=== PATIENT | male | born 1950 | race African-American/Black ===

== ENCOUNTER 2023-03-25 11:52 | Inpatient (IN) | payer MEDICARE, BC, SELFPAY ==
--- NOTE | ~2023-03-25 | CT_ITS ---
EXAMINATION: CT CHEST, ABDOMEN AND PELVIS WITHOUT CONTRAST. CLINICAL INFORMATION: Hemoptysis, chest pain, dyspnea, weight loss. Right flank pain. COMPARISON: No pertinent prior studies are available for comparison. TECHNIQUE: Multidetector volumetric imaging was performed from the thoracic inlet through the pubic symphysis without IV contrast. Sagittal and coronal reformatted images were obtained on the technologist's workstation. This CT examination was performed using dose optimization techniques as appropriate, variously including the following: *Automated exposure control *Adjustment of mA and/or kV according to patient size (this includes techniques or standardized protocols for targeted exams where dose is matched to indication/reason for exam; i.e. extremities or head) *Use of iterative reconstruction technique DLP: 239 and 681 mGy-cm FINDINGS: CHEST: Lung: Combination of consolidative, patchy and groundglass opacities occupying the majority of the right upper lobe with some degree of associated volume loss. The right upper mainstem bronchus as well as other central airways are patent. Platelike opacities in the posterior aspect of the right lower lobe, favored to represent subsegmental atelectases. The left lung is clear. Evaluation of pulmonary nodules/masses in the right upper lobe is essentially nondiagnostic due to overlying airspace opacities. There are scattered sub-4 mm mixed calcified and noncalcified pulmonary nodules elsewhere bilaterally, for instance a 4 mm solid pulmonary nodule in the right middle lobe anterior to the fissure (7:255), a micronodule in the right middle lobe (7:215) and a solid 2 mm nodule in the left lower lobe posterior to the fissure (7:204). Mediastinum: Heart is within the upper limits of normal. Small amount of pericardial fluid. Coronary artery calcifications are noted. Numerous subcentimeter short axis mediastinal lymph nodes are seen. Evaluation of hilar lymph nodes is limited in the absence of IV contrast. There is a 1.5 cm right thyroid nodule (5:4). Pericardium/Pleura: As above, small pericardial effusion. No pleural effusion or pneumothorax. Chest Wall/Axilla: Symmetric gynecomastia. No lymphadenopathy by size criteria. Asymmetric elevation of the right hemidiaphragm. ABDOMEN/PELVIS: The lack of intravenous contrast limits evaluation of the solid visceral organs including the liver, spleen, pancreas, and kidneys. Liver, Gallbladder, Biliary Tree: Limited noncontrast evaluation of the liver, unremarkable. Hyperdense debris in the gallbladder to represent bile duct, calculi or sludge. No associated inflammatory changes to suspect acute cholecystitis. No biliary ductal dilatation. Pancreas: Limited noncontrast examination. No significant peripancreatic fat stranding or free fluid. Spleen: Unremarkable. Adrenal Glands: Unremarkable. Kidneys and Ureters: Limited noncontrast examination. Mild asymmetric prominence of the right renal pelvis and right ureter without discrete obstructive renal calculi. Trace amount of perinephric free fluid along the inferior right kidney (12:411). Bladder: Unremarkable. Gastrointestinal Tract: Small hiatal hernia. Duodenal diverticulum. The stomach and the small bowel are nondilated. Normal appendix. Colonic diverticulosis. No pericolonic inflammatory changes. No bowel obstruction. Abdominal Wall: Small fat-containing inguinal hernias. Lymphovascular Structures: No lymphadenopathy by size criteria. Atherosclerotic disease. Abdominal aorta is normal in caliber. Pelvic Viscera: Enlarged prostate protruding into the bladder base transverse diameter measuring 5.6 cm. Osseous Structures: Degenerative changes of the spine. Grade 1 anterolisthesis of L4 on L5. CT/CT abdomen pelvis wo IV con IMPRESSION: Limited noncontrast examination. 1. Combination of consolidative, patchy and groundglass opacities occupying the majority of the right upper lobe with associated volume loss. This could be related with an atypical pneumonia with some component of atelectasis, however an underlying malignancy is not excluded. Recommend a short-term follow-up chest CT with IV contrast. 2. Scattered sub-4 mm mixed calcified and noncalcified pulmonary nodules that could be follow-up with the above recommended chest CT. 3. Mild asymmetric prominence of the right renal pelvis and right ureter without discrete obstructive renal calculi. This could be seen in the setting of a recently passed stone. Mild asymmetric right-sided perinephric fat stranding, nonspecific could be physiologic or reactive in the setting of a recently passed stone. However, clinical correlation should be obtained for acute pyelonephritis which is suboptimally assessed in the absence of IV contrast. 4. Colonic diverticulosis but no evidence of acute diverticulitis. 5. Small hiatal hernia. 6. Enlarged prostate. 7. Incidentally noted 1.5 cm right thyroid nodule. Based on the recommendations of the ACR Incidental Thyroid Findings Committee (JACR 2015 Feb; 12(2):143-50), further evaluation by thyroid ultrasound is recommended for solitary incidental thyroid nodules greater than or equal to 1.5 cm in largest axial dimension in patients age 35 years and older who do not have limited life expectancy or significant morbidities, unless clinically warranted.
--- NOTE | ~2023-03-25 | XR_ITS ---
EXAMINATION: XR CHEST CLINICAL INFORMATION: Weakness. COMPARISON: None available. TECHNIQUE: Frontal view of the chest was obtained. FINDINGS: The left lung is expanded and clear. The right lung is hypoexpanded with patchy increased density right lung apex question lesion versus underlying infiltrate. Heart size and perivascular is normal. There is moderate spondylosis dorsal spine. XR/XR chest 1V IMPRESSION: 1. Hypoexpanded right lung with increased density right lung apex question lesion versus underlying infiltrate. Recommend CT chest. 2. The left lung is clear.
[2023-03-25 12:02] VITALS: PULSE 94; RESP 20; TEMP 36.4; O2SAT 94; BMI 28.5
--- NOTE | 2023-03-25 12:02 | ECG_ITS ---
Test Reason : DIZZINESS Blood Pressure : / mmHG Vent. Rate : 100 BPM Atrial Rate : 000 BPM P-R Int : 000 ms QRS Dur : 112 ms QT Int : 350 ms P-R-T Axes : 000 -39 113 degrees QTc Int : 451 ms Atrial fibrillation Left axis deviation T inversion lateral leads Abnormal ECG No previous ECGs available Referred By: Bethany Hendrix Electronically Signed By:JAVED VIEYRA
--- NOTE | 2023-03-25 12:02 | ED.GENADULT ---
HPI - General Adult General Chief complaint: Abdominal Pain Stated complaint: Kidney Pain Radiating to Chest Time Seen by Provider: 03/25/23 15:17 Source: patient and family (Cousin) Mode of arrival: ambulatory Limitations: no limitations History of Present Illness HPI narrative: 72-year-old male who presents emergency department for evaluation of right-sided flank pain, cough, shortness of breath and weight loss. The patient states that 2 days prior he woke up and was having right flank pain. He describes the pain is a twisting like sensation that is been intermittent became constant over the past 24 hours. The patient does have difficulty with his memory and has memory loss. He states that his pain was severe this morning he passed out but cannot recount details a passing out. He did discuss his symptoms over the phone with his cousin who then brought him to the emergency department for evaluation. Patient states that he has noted dark colored urine. He denied fever, chills, rhinorrhea, sore throat. He states that he has a cough which is productive of clear splint but occasionally the sputum is bloody. States that the cough started in January of 2023. He denied chest pain, shortness of breath. He states he does have dyspnea on exertion. He denied nausea or vomiting. He has had loose runny stools x2 days. Denied frequency or dysuria but has noted dark colored urine. He states he has had an 8 lb weight loss. States that he is having increased fatigue above his baseline. The patient's primary care is Dr. 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 Atrial fibrillation, on Eliquis, Type 2 diabetes, Congestive heart failure, depressive disorder, GERD, gout, history of kidney disease with protein urea, history of angioplasty, hypertension, ischemic heart disease, stage 3 kidney disease. Past surgical history: Tonsillectomy. Social history: The patient denies tobacco, alcohol and drug use. Social History Social History Alcohol intake: never Smoked in Last 30 Days: No Physical Exam ED Vital Signs: Vital Signs - 24 hr 05/24/23 12:02 03/25/23 15:34 03/25/23 16:00 Temperature 97.5 F 98.1 F 98.1 F Pulse Rate 94 74 94 Respiratory Rate 20 20 18 Blood Pressure 109/68 109/67 Pulse Oximetry 94 94 95 Oxygen Delivery Method Room Air Room Air Room Air BMI result Body Mass Index 28.5 Const General: cooperative and no acute distress Orientation/consciousness: oriented to person and oriented to place Limitations: no limitations HENMT Head: Yes normal to inspection, Yes normocephalic and Yes atraumatic Ears: external ears normal General nose exam: Normal external nose present Face and sinus: Yes normal facial exam Mouth: Normal oral and palatal mucosa present Throat: Yes posterior oropharynx normal Eyes General: appearance normal, both eyes and all related structures Pupils: Equal, round and reactive pupils present Neck Neck: Yes normal visual inspection, Yes no lymphadenopathy, Yes trachea midline and Yes supple Chest Chest palpation & inspection: normal inspection of the chest and normal palpation of entire chest wall Resp Effort & Inspection: normal respiratory effort and able to speak in complete sentences Auscultation: clear to auscultation bilaterally Cardio Rate: regular rate Rhythm: regular rhythm Heart sounds: S1 normal heart sound present, S2 normal heart sound present and no murmurs GI Inspection: Yes normal to inspection Palpation (GI): Soft to palpation, nontender and no guarding Auscultation: normal bowel sounds General: Yes no CVA tenderness Back/Spine/Pelvis Back: no CVA tenderness Skin General skin exam: no rashes or lesions noted Neuro General: oriented to person and oriented to place Cranial nerves: Yes CN's II-XII intact bilaterally and Yes Equal, round and reactive pupils present Cognition (Neuro): normal cognition Motor exam (neuro): 5/5 motor strength present throughout Extrem General: Yes normal to inspection Psych Appearance: grossly normal Speech and movement: Normal speech and movement present Affect: normal affect Attitude: cooperative Course Course Course Narrative: RME: 72yo M w/PMHx memory issues, HTN, HLD, A.fib on Eliquis c/o generalized fatigue/weakness, R flank pain, decreased PO intake, & mild SOB x few days. denies CP, hematuria, dysuria ambulating w/steady gait, abdomen soft nontender, no CVAT EKG, labs, UA, CXR ordered Full HPI, ROS and PE to be performed by primary ED provider. Medications Administered Generic Name Dose Route Start Last Admin Trade Name Freq PRN Reason Stop Dose Admin Sodium Chloride 1,000 mls @ 999 mls/hr 03/25/23 16:06 03/25/23 16:12 Ns IV 03/25/23 17:06 999 mls/hr .Q1H1M STA Administration Medical Decision Making Medical Decision Making MDM Narrative: 72-year-old male with a history of congestive heart failure, atrial fibrillation-on Eliquis type 2 diabetes, depression, GERD, gout, ischemic heart disease, hypertension, history of angioplasty, stage 3 chronic kidney disease who presents emergency department for evaluation of right flank pain, change in the color of his urine (darker than usual) x2 days, cough which is occasionally productive of blood times 1 month with unintentional 8 lb weight loss and fatigue, diarrhea x2 days. Patient does have difficulty with his memory. Patient's physical examination was unremarkable. The following tests were ordered: CBC, BMP, liver panel, lipase, troponin, PT/INR, magnesium, COVID-19, urinalysis, chest x-ray one view, CT scan chest without IV contrast, CT scan abdomen pelvis without IV contrast. Patient was also ordered to get normal saline IV x1 L. 1610: My interpretation patient's laboratory evaluation is as follows: WBC elevated 11,800, no anemia. INR elevated 1.9. BUN and creatinine elevated 78 in 2.74-this is elevated compared to 12/12/2020 BUN 27 and creatinine 2.1 and 17 and 1.4 on 05/26/2022. Total bilirubin was elevated 2.1, AST and ALT were elevated 78 and 50. Lipase was normal. Urinalysis revealed 1+ protein, trace ketones, negative nitrates and negative leukocyte esterase. Microscopic is pending Radiologist noted that the patient's right lung was hypoexpanded with increased density right lung apex question lesion versus underlying infiltrate. He recommended CT scan of the chest. My interpretation of the patient's chest x-ray concurs with decreased expansion of the right lung and possible mass in the right upper lobe/apex. 1633: At the end of my shift, the patient's CT scans are pending. The patient's care was turned over to my colleague, Dr. Penny. Differential Diagnosis Differential diagnosis includes but is not limited to kidney stone, pyelonephritis, pancreatitis, musculoskeletal pain, pneumonia, malignancy, tuberculosis Admission/Observation Consideration of admission/observation: Escalation of care including admission/observation considered Lab Data [facility] Lab Attestation statement: I reviewed the patient's lab results. See MDM 03/25/23 12:47 03/25/23 12:47 Labs: Lab Results 03/25/23 03/25/23 03/25/23 Range/Units 12:47 12:47 12:47 WBC 11.8 H (4.8-10.8) X10*3/uL RBC 5.49 (4.60-5.80) X10*6/uL Hgb 15.0 (14.0-18.0) g/dl Hct 45.0 (42.0-52.0) % MCV 82.0 (80.0-98.0) fL MCH 27.3 (27.0-33.0) pg MCHC 33.3 (31.0-36.0) g/dl RDW 14.9 (11.0-16.0) % Plt Count 190 (160-400) X10*3/uL MPV 10.1 (9.4-12.4) fL Immature Gran % (Auto) 0.5 H (0.0-0.4) % Neut % (Auto) 85.1 H (45-73) % Lymph % (Auto) 6.8 L (20-40) % [place] % (Auto) 7.2 (2-11) % Eos % (Auto) 0.1 (0-4) % Baso % (Auto) 0.3 (0-2) % Lymph # (Auto) 0.8 L (1.2-4.9) X10*3/uL [place] # (Auto) 0.9 (0.1-1.2) X10*3/uL Eos # (Auto) 0.0 (0.0-0.4) X10*3/uL Baso # (Auto) 0.0 (0.0-0.2) X10*3/uL Abs Immat Gran (auto) 0.06 H (0.00-0.03) X10*3/uL Absolute Neuts (auto) 10.1 H (2.0-8.3) x10*3/uL Absolute Nucleated RBC 0.000 (0.0-0.012) X10*3/uL Nucleated RBC % (auto) 0.0 (0.0-0.2) /100WBC PT (10.0-13.1) SEC INR (0.9-1.1) Sodium 139 (135-145) mmol/L Potassium 3.8 (3.3-5.1) mmol/L Chloride 100 (96-108) mmol/L Carbon Dioxide 23 (22-29) mmol/L Anion Gap 20 (12-20) BUN 78 H (9-16) mg/dL Creatinine 2.74 H (0.5-1.4) mg/dL Estim Creat Clear Calc 27.9 Estimated GFR 23 Random Glucose 109 (60-115) mg/dL Calcium 8.9 (8.4-10.2) mg/dL Magnesium 2.6 (1.6-2.6) mg/dL Total Bilirubin 2.1 H (0.0-1.0) mg/dL Direct Bilirubin 0.9 H (0.0-0.5) mg/dL AST 78 H (5-37) U/L ALT 50 H (0-40) U/L Alkaline Phosphatase 114 (39-117) U/L Troponin I High Sens 10.1 (<3.5-35.0) ng/L Total Protein 6.5 (6.5-8.0) g/dL Albumin 3.4 L (3.5-5.0) g/dL Lipase 36 (8-78) U/L Urine Color Urine Appearance Urine pH (5.0-9.0) Ur Specific Donald (1.005-1.025) Urine Protein (Neg-Trace) mg/dL Urine Glucose (UA) (Negative) mg/dL Urine Ketones (Negative) mg/dL Urine Blood (Negative) Urine Nitrite (Negative) Ur Leukocyte Esterase (Negative) Urine RBC (0-2) /HPF Urine WBC (0-5) /HPF Ur Squamous Epith Cells (0-2) /HPF Urine Bacteria (None Seen) Hyaline Casts (0-2) /LPF COVID-19 ([facility]) (Negative) COVID-19 Clin Com 03/25/23 03/25/23 03/25/23 Range/Units 12:47 12:47 16:08 WBC (4.8-10.8) X10*3/uL RBC (4.60-5.80) X10*6/uL Hgb (14.0-18.0) g/dl Hct (42.0-52.0) % MCV (80.0-98.0) fL MCH (27.0-33.0) pg MCHC (31.0-36.0) g/dl RDW (11.0-16.0) % Plt Count (160-400) X10*3/uL MPV (9.4-12.4) fL Immature Gran % (Auto) (0.0-0.4) % Neut % (Auto) (45-73) % Lymph % (Auto) (20-40) % [place] % (Auto) (2-11) % Eos % (Auto) (0-4) % Baso % (Auto) (0-2) % Lymph # (Auto) (1.2-4.9) X10*3/uL [place] # (Auto) (0.1-1.2) X10*3/uL Eos # (Auto) (0.0-0.4) X10*3/uL Baso # (Auto) (0.0-0.2) X10*3/uL Abs Immat Gran (auto) (0.00-0.03) X10*3/uL Absolute Neuts (auto) (2.0-8.3) x10*3/uL Absolute Nucleated RBC (0.0-0.012) X10*3/uL Nucleated RBC % (auto) (0.0-0.2) /100WBC PT 22.2 H (10.0-13.1) SEC INR 1.9 H (0.9-1.1) Sodium (135-145) mmol/L Potassium (3.3-5.1) mmol/L Chloride (96-108) mmol/L Carbon Dioxide (22-29) mmol/L Anion Gap (12-20) BUN (9-16) mg/dL Creatinine (0.5-1.4) mg/dL Estim Creat Clear Calc Estimated GFR Random Glucose (60-115) mg/dL Calcium (8.4-10.2) mg/dL Magnesium (1.6-2.6) mg/dL Total Bilirubin (0.0-1.0) mg/dL Direct Bilirubin (0.0-0.5) mg/dL AST (5-37) U/L ALT (0-40) U/L Alkaline Phosphatase (39-117) U/L Troponin I High Sens (<3.5-35.0) ng/L Total Protein (6.5-8.0) g/dL Albumin (3.5-5.0) g/dL Lipase (8-78) U/L Urine Color Dark Yellow Urine Appearance Cloudy Urine pH 5.5 (5.0-9.0) Ur Specific Donald 1.020 (1.005-1.025) Urine Protein 30 (1+) H (Neg-Trace) mg/dL Urine Glucose (UA) Negative (Negative) mg/dL Urine Ketones Trace (Negative) mg/dL Urine Blood Negative (Negative) Urine Nitrite Negative (Negative) Ur Leukocyte Esterase Negative (Negative) Urine RBC 3-5 H (0-2) /HPF Urine WBC 0-5 (0-5) /HPF Ur Squamous Epith Cells 6-10 (0-2) /HPF Urine Bacteria None Seen (None Seen) Hyaline Casts 11-20 (0-2) /LPF COVID-19 ([facility]) Negative (Negative) COVID-19 Clin Com See Note Independent Interpretation I performed an independent interpretation of an: EKG and Plain X-Ray Interpretation: My independent interpretation of the patient's one-view chest x-ray is as follows: Hypoexpansion of the right lung with possible right upper apex mass My independent interpretation patient's 12 EKG done at 15:55 is as follows: Atrial fibrillation with a rate of 91, normal QRS duration and QTC interval, no ST segment elevation, no ST segment depression, occasional PVC, no significant T-wave abnormalities. Radiology Impression Discussion of test interpretation with radiology: I have reviewed the radiologist's reading. Radiologist Impression: XR chest 1V IMPRESSION: 1. Hypoexpanded right lung with increased density right lung apex question lesion versus underlying infiltrate. Recommend CT chest. 2. The left lung is clear. Dictated By:Beau Ruiz MD Independent Historian Clinical information obtained from an independent historian. History obtained from or confirmed by: Other (Cousin) Discharge Plan Discharge Clinical Impression: Acute right flank pain, Hemoptysis, Acute kidney injury superimposed on chronic kidney disease Patient Disposition: Still a Patient
[2023-03-25 12:54] LABS: MANUAL DIFF FLAG NO
[2023-03-25 12:57] LABS: Basophils Percent Auto 0.3 % (0-2); Eosinophils Percent Auto 0.1 % (0-4); Imm Gran Abs Auto 0.06 X10*3/uL (0.00-0.03); Imm Gran Pct Auto 0.5 % (0.0-0.4); Lymphocytes Absolute Auto 0.8 X10*3/uL (1.2-4.9); Lymphocytes Percent Auto 6.8 % (20-40); Mean Corpuscular HGB Conc 33.3 g/dl (31.0-36.0); Mean Corpuscular Hemoglobin 27.3 pg (27.0-33.0); Mean Platelet Volume 10.1 fL (9.4-12.4); Monocytes Absolute Auto 0.9 X10*3/uL (0.1-1.2); Monocytes Percent Auto 7.2 % (2-11); Neutrophils Absolute Auto 10.1 x10*3/uL (2.0-8.3); Neutrophils Percent Auto 85.1 % (45-73); Platelet Count 190 X10*3/uL (160-400); Red Blood Count 5.49 X10*6/uL (4.60-5.80); Red Cell Distribution Width 14.9 % (11.0-16.0); White Blood Count 11.8 X10*3/uL (4.8-10.8)
[2023-03-25 13:03] LABS: INTERNATIONAL NORM RATIO 1.9 (0.9-1.1); Prothrombin Time 22.2 SEC (10.0-13.1)
[2023-03-25 13:22] LABS: Alanine Aminotransferase 50 U/L (0-40); Albumin Level 3.4 g/dL (3.5-5.0); Alkaline Phosphatase 114 U/L (39-117); Anion Gap 20 (12-20); Aspartate Amino Transferase 78 U/L (5-37); Bilirubin Direct 0.9 mg/dL (0.0-0.5); Bilirubin Total 2.1 mg/dL (0.0-1.0); Blood Urea Nitrogen 78 mg/dL (9-16); COVID-19 Test Negative (Negative); Calcium 8.9 mg/dL (8.4-10.2); Carbon Dioxide 23 mmol/L (22-29); Chloride 100 mmol/L (96-108); Creatinine Clr Calc Pharmacy 27.9; Estimated Glomerular Filt Rate 23; Glucose Random 109 mg/dL (60-115); IDNOW Serial# 08D9AD1C; Lipase 36 U/L (8-78); Magnesium 2.6 mg/dL (1.6-2.6); Potassium 3.8 mmol/L (3.3-5.1); Sodium 139 mmol/L (135-145); Total Protein 6.5 g/dL (6.5-8.0); Troponin-I High Sensitivity 10.1 ng/L (<3.5-35.0)
[2023-03-25 15:34] VITALS: BP 109/68; PULSE 74; RESP 20; TEMP 36.7; O2SAT 94
--- NOTE | 2023-03-25 15:50 | PC.NURSE ---
Alert and oriented. arrived from home stating he has had pain in his right lower back kidney area for 2 days. States also had had diarrhea x2 two days. Also states that he has had SOB since january and overall feels fatigued. Believes that these symptoms are being caused by seasonal allergies since they started in January. THANG, positive bowel sounds x 4. Denies chest pain.
--- NOTE | 2023-03-25 15:56 | ECG_ITS ---
Test Reason : cp Blood Pressure : / mmHG Vent. Rate : 086 BPM Atrial Rate : 000 BPM P-R Int : 000 ms QRS Dur : 112 ms QT Int : 386 ms P-R-T Axes : 000 -48 187 degrees QTc Int : 461 ms Atrial fibrillation Left anterior fascicular block Nonspecific T wave abnormality Prolonged QT Abnormal ECG When compared with ECG of 25-MAR-2023 15:55, No significant changes seen Referred By: John Vasquez Electronically Signed By:JAVED VIEYRA
[2023-03-25 16:00] VITALS: BP 109/67; PULSE 94; RESP 18; TEMP 36.7; O2SAT 95
[2023-03-25] MEDS: 0.9 % Sodium Chloride 1,000 ML 999 ML IV (16:12)
[2023-03-25 16:18] LABS: Appearance Urine Cloudy; Color Urine Dark Yellow; Glucose Urine UA Negative (Negative); Leukocyte Esterase Urine Negative (Negative); Nitrite Urine Negative (Negative); PH 5.5 (5.0-9.0); UMIC TRIGGER UACC YES; Urine Blood Negative (Negative); Urine Ketones Trace mg/dL (Negative); Urine Protein 30 (1+) mg/dL (Neg-Trace)
[2023-03-25 16:33] LABS: Bacteria Urine None Seen (None Seen); WBC Urine 0-5 /HPF (0-5)
--- NOTE | 2023-03-25 17:41 | PC.NURSE ---
Started on respiratory contact precautions. Fluids completed, patient reports feeling better after fluids. Denies chest pain, dizziness, nausea or vomtiing.
--- NOTE | 2023-03-25 18:04 | PC.NURSE ---
Unable to run TB spot test as test a send out and ran M- 8-5. Dr Penny aware.
[2023-03-25 18:05] LABS: Granular Casts Urine Present
[2023-03-25 18:42] LABS: Lactic Acid 1.9 mmol/L (0.5-2.0)
[2023-03-25 19:02] VITALS: BP 120/66; PULSE 102; RESP 16; TEMP 36.8; O2SAT 90
[2023-03-25] MEDS: Piperacillin Sodium/Tazobactam 3.375 GM in 0.9 % Sodium Chloride 50 ML IV (20:42)
--- NOTE | 2023-03-25 21:08 | PM.IMHP ---
History of Present Illness Date of Service: 03/25/23 Attending physician on admission: Luis Medel Chief Complaint: right flank pain, sob 72-year-old male with history of CKD stage 3, depression, diet-controlled type 2 diabetes, dilated cardiomyopathy, gout, paroxysmal atrial fibrillation anticoagulated with Eliquis, hypercholesterolemia, hypertension, and grief disorder as well as history of TBI with memory impairment presents to the ED accompanied by his 2 cousins for evaluation of right-sided flank pain, cough, shortness of breath, and 10 lb unintentional weight loss. He reports the right sided flank pain associated with dark urine this started several days ago. He has had shortness of breath, productive cough with blood-tinged sputum ongoing for several months but worsened over the last few days and he has also been very fatigued. He states the pain in the right flank is improved compared to yesterday. He is also endorsing sore throat. Denies any fevers but does endorse sweats and chills, no other abdominal pain, nausea, vomiting, dysuria, hematuria, increased urinary frequency urgency, lightheadedness, palpitations, or chest pain. On arrival, patient is afebrile, intermittently tachycardic to 102, and hypoxic to 87% placed on 2 L supplemental O2. There is a mild leukocytosis of 11.8, no anemia. Creatinine 2.74 (baseline 1.3 from 12/01 at [facility]), BUN 78. Electrolyte levels normal. AST 78, ALT 50, total bilirubin 2.1, direct bilirubin 0.9. Urinalysis unremarkable except for 1+ protein. Negative leukocytes or blood. CXR showing hypoexpanded right lung with increased density right lung apex ?question lesion versus underlying infiltrate follow-up CT recommended. Chest CT shows a combination of consolidative and patchy and ground-glass opacities occupying the majority of the right upper lobe with associated volume loss possibly related to an atypical pneumonia with some component of atelectasis however underlying malignancy is not excluded. There is also scattered sub 4 mm neck is calcified and noncalcified pulmonary nodules. CT of the abdomen/pelvis shows mild asymmetric prominence of the right renal pelvis and right ureter without discrete obstructive renal calculi seen in the setting of recently passed stone. There is mild asymmetric right-sided perinephric fat stranding possibly reactive in the setting of recently passed stone. There is also enlarged prostate and instantly noted 1.5 cm right thyroid nodule. In the ED, has been treated empirically for postobstructive pneumonia with IV Zosyn and is also receive 1 L IVF. Review of Systems Review of Systems: General: No fevers, malaise. +unintentional weight loss, +chills/sweats HEENT: +sore throat. No nasal congestion, rhinorrhea, sinus pain, ear pain Cardiovascular: No chest pain, palpitations, or leg edema Respiratory: +sob, +cough, +hemoptysis. No wheezing GI: No abdominal pain, nausea, vomiting, diarrhea, constipation, melena, hematochezia : +right flank pain, +dark urine. No dysuria, hematuria, increased urinary frequency, decreased urinary output MSK: No myalgia, back pain Neuro: No headaches, weakness, paresthesias Skin: No rashes or lesions PMFSH Social History Alcohol intake: never Smoked in Last 30 Days: No Advance Directives: No Advance Directives Information Provided: Yes Meds Allergies Allergy/AdvReac Type Severity Reaction Status Date / Time No Known Allergies Allergy Verified 03/25/23 12:02 Active Medications: Current Medications Acetaminophen (Acetaminophen 325 Mg Tablet) 650 mg PO Q6H PRN PRN Reason: Pain, Mild (Pain Scale 1-3) Amiodarone HCl (Amiodarone Hcl 200 Mg Tablet) 200 mg PO DAILY [facility] Amlodipine Besylate (Amlodipine Besylate 10 Mg Tablet) 10 mg PO DAILY [facility]; Protocol Carvedilol (Carvedilol 25 Mg Tablet) 25 mg PO BID [facility]; Protocol Docusate Sodium (Docusate Sodium 100 Mg Capsule) 100 mg PO DAILY PRN PRN Reason: Constipation Non-Formulary Medication (Simvastatin) 20 mg PO DAILY [facility] Ondansetron HCl (Ondansetron Hcl 4 Mg/2 Ml Vial) 4 mg IVPUSH Q8H PRN PRN Reason: Nausea and Vomiting Pharmacy Consult (Consult Rx Perform Med Rec) 1 each MISCELLANE ONCE PRN PRN Reason: Consult order Sodium Chloride (0.9 % Sodium Chloride Flush 3 Ml Syringe) 3 ml IVFLUSH QSHIFT [facility] Home Medications Medication Instructions Recorded Confirmed Last Taken Type amiodarone 200 mg tablet 200 mg PO DAILY 03/25/23 03/25/23 03/25/23 History amlodipine 10 mg tablet 10 mg PO DAILY 03/25/23 03/25/23 03/25/23 History apixaban 5 mg tablet (Eliquis) 5 mg PO BID 03/25/23 03/25/23 03/25/23 History carvedilol 25 mg tablet 25 mg PO BID 03/25/23 03/25/23 03/25/23 History simvastatin 20 mg tablet 20 mg PO DAILY 03/25/23 03/25/23 03/25/23 History Physical Exam Vital Signs and Narrative: Vital Signs: Last Vital Signs Temp 98.2 F 03/25/23 19:02 Pulse 102 H 03/25/23 19:02 Resp 16 03/25/23 19:02 BP 120/66 03/25/23 19:02 Pulse Ox 90 L 03/25/23 19:02 O2 Del Method Room Air 03/25/23 19:02 BMI result Body Mass Index 28.5 Constitutional - Awake and Alert, No apparent distress Eyes - PERRLA, EOMI Cardiovascular - S1S2, RRR, No edema Respiratory - Normal lung expansion, Normal respiratory effort, No respiratory distress, rhonchi RUL Gastrointestinal - NT / ND; +BS; No rebound or guarding - right flank pain Extremities - no calf tenderness bilaterally, no swelling Skin - Warm/Dry Neurological - Alert & oriented x3, CN II-XII in tact, some perseveration and poor short term memory recall Psychological - Appropriate affect Results Labs 03/25/23 12:47 03/25/23 12:47 Labs: Laboratory Results - last 24 hr 03/25/23 03/25/23 03/25/23 12:47 12:47 12:47 MCV 82.0 MCH 27.3 MCHC 33.3 RDW 14.9 Plt Count 190 MPV 10.1 Immature Gran % (Auto) 0.5 H Neut % (Auto) 85.1 H Lymph % (Auto) 6.8 L Josephine % (Auto) 7.2 Eos % (Auto) 0.1 Baso % (Auto) 0.3 Lymph # (Auto) 0.8 L Josephine # (Auto) 0.9 Eos # (Auto) 0.0 Baso # (Auto) 0.0 Abs Immat Gran (auto) 0.06 H Absolute Neuts (auto) 10.1 H Absolute Nucleated RBC 0.000 Nucleated RBC % (auto) 0.0 PT INR Anion Gap 20 Estim Creat Clear Calc 27.9 Estimated GFR 23 Random Glucose 109 Lactic Acid Calcium 8.9 Magnesium 2.6 Total Bilirubin 2.1 H Direct Bilirubin 0.9 H AST 78 H ALT 50 H Alkaline Phosphatase 114 Troponin I High Sens 10.1 Total Protein 6.5 Albumin 3.4 L Lipase 36 Urine Color Urine Appearance Urine pH Ur Specific [place] Urine Protein Urine Glucose (UA) Urine Ketones Urine Blood Urine Nitrite Ur Leukocyte Esterase Urine RBC Urine WBC Ur Squamous Epith Cells Urine Bacteria Hyaline Casts Granular Casts COVID-19 ([facility]) COVID-19 Clin Com 03/25/23 03/25/23 03/25/23 12:47 12:47 16:08 MCV MCH MCHC RDW Plt Count MPV Immature Gran % (Auto) Neut % (Auto) Lymph % (Auto) Josephine % (Auto) Eos % (Auto) Baso % (Auto) Lymph # (Auto) Josephine # (Auto) Eos # (Auto) Baso # (Auto) Abs Immat Gran (auto) Absolute Neuts (auto) Absolute Nucleated RBC Nucleated RBC % (auto) PT 22.2 H INR 1.9 H Anion Gap Estim Creat Clear Calc Estimated GFR Random Glucose Lactic Acid Calcium Magnesium Total Bilirubin Direct Bilirubin AST ALT Alkaline Phosphatase Troponin I High Sens Total Protein Albumin Lipase Urine Color Dark Yellow Urine Appearance Cloudy Urine pH 5.5 Ur Specific [place] 1.020 Urine Protein 30 (1+) H Urine Glucose (UA) Negative Urine Ketones Trace Urine Blood Negative Urine Nitrite Negative Ur Leukocyte Esterase Negative Urine RBC 3-5 H Urine WBC 0-5 Ur Squamous Epith Cells 6-10 Urine Bacteria None Seen Hyaline Casts 11-20 Granular Casts Present COVID-19 ([facility]) Negative COVID-19 Clin Com See Note 03/25/23 18:10 MCV MCH MCHC RDW Plt Count MPV Immature Gran % (Auto) Neut % (Auto) Lymph % (Auto) Josephine % (Auto) Eos % (Auto) Baso % (Auto) Lymph # (Auto) Josephine # (Auto) Eos # (Auto) Baso # (Auto) Abs Immat Gran (auto) Absolute Neuts (auto) Absolute Nucleated RBC Nucleated RBC % (auto) PT INR Anion Gap Estim Creat Clear Calc Estimated GFR Random Glucose Lactic Acid 1.9 Calcium Magnesium Total Bilirubin Direct Bilirubin AST ALT Alkaline Phosphatase Troponin I High Sens Total Protein Albumin Lipase Urine Color Urine Appearance Urine pH Ur Specific [place] Urine Protein Urine Glucose (UA) Urine Ketones Urine Blood Urine Nitrite Ur Leukocyte Esterase Urine RBC Urine WBC Ur Squamous Epith Cells Urine Bacteria Hyaline Casts Granular Casts COVID-19 ([facility]) COVID-19 Clin Com Imaging Radiologist's Impressions: Impressions Chest X-Ray 03/25/23 12:14 IMPRESSION: 1. Hypoexpanded right lung with increased density right lung apex question lesion versus underlying infiltrate. Recommend CT chest. 2. The left lung is clear. Abdomen/Pelvis CT 03/25/23 17:08 IMPRESSION: Limited noncontrast examination. 1. Combination of consolidative, patchy and groundglass opacities occupying the majority of the right upper lobe with associated volume loss. This could be related with an atypical pneumonia with some component of atelectasis, however an underlying malignancy is not excluded. Recommend a short-term follow-up chest CT with IV contrast. 2. Scattered sub-4 mm mixed calcified and noncalcified pulmonary nodules that could be follow-up with the above recommended chest CT. 3. Mild asymmetric prominence of the right renal pelvis and right ureter without discrete obstructive renal calculi. This could be seen in the setting of a recently passed stone. Mild asymmetric right-sided perinephric fat stranding, nonspecific could be physiologic or reactive in the setting of a recently passed stone. However, clinical correlation should be obtained for acute pyelonephritis which is suboptimally assessed in the absence of IV contrast. 4. Colonic diverticulosis but no evidence of acute diverticulitis. 5. Small hiatal hernia. 6. Enlarged prostate. 7. Incidentally noted 1.5 cm right thyroid nodule. Based on the recommendations of the ACR Incidental Thyroid Findings Committee (JACR 2015 Dec; 12(2):143-50), further evaluation by thyroid ultrasound is recommended for solitary incidental thyroid nodules greater than or equal to 1.5 cm in largest axial dimension in patients age 35 years and older who do not have limited life expectancy or significant morbidities, unless clinically warranted. Chest CT 03/25/23 17:08 IMPRESSION: Limited noncontrast examination. 1. Combination of consolidative, patchy and groundglass opacities occupying the majority of the right upper lobe with associated volume loss. This could be related with an atypical pneumonia with some component of atelectasis, however an underlying malignancy is not excluded. Recommend a short-term follow-up chest CT with IV contrast. 2. Scattered sub-4 mm mixed calcified and noncalcified pulmonary nodules that could be follow-up with the above recommended chest CT. 3. Mild asymmetric prominence of the right renal pelvis and right ureter without discrete obstructive renal calculi. This could be seen in the setting of a recently passed stone. Mild asymmetric right-sided perinephric fat stranding, nonspecific could be physiologic or reactive in the setting of a recently passed stone. However, clinical correlation should be obtained for acute pyelonephritis which is suboptimally assessed in the absence of IV contrast. 4. Colonic diverticulosis but no evidence of acute diverticulitis. 5. Small hiatal hernia. 6. Enlarged prostate. 7. Incidentally noted 1.5 cm right thyroid nodule. Based on the recommendations of the ACR Incidental Thyroid Findings Committee (JACR 2014; 12(2):143-50), further evaluation by thyroid ultrasound is recommended for solitary incidental thyroid nodules greater than or equal to 1.5 cm in largest axial dimension in patients age 35 years and older who do not have limited life expectancy or significant morbidities, unless clinically warranted. Assessment and Plan (1) Pneumonia: Status: Acute (2) Acute kidney injury superimposed on chronic kidney disease: Status: Acute (3) Hemoptysis: Status: Acute (4) Acute right flank pain: Status: Acute Plan 72-year-old male with history of CKD stage 3, depression, diet-controlled type 2 diabetes, dilated cardiomyopathy, gout, paroxysmal atrial fibrillation anticoagulated with Eliquis, hypercholesterolemia, hypertension, and grief disorder as well as history of TBI with memory impairment admitted for suspected post-obstructive pneumonia with acute hypoxemic respiratory failure and ROSMERY. #Acute pneumonia- suspect post-obstructive with acute hypoxemic respiratory failure -Cough with hemoptysis, sob, unintentional weight loss ongoing several months concerning for malignancy. Chest CT shows a combination of consolidative and patchy and ground-glass opacities occupying the majority of the right upper lobe with associated volume loss possibly related to an atypical pneumonia with some component of atelectasis however underlying malignancy is not excluded. -Continue supplemental O2 to maintain oximetry >92% -IV zosyn (initiated 03/25) -Symptomatic management -No sepsis -Appreciate pulmonology input in the setting of hemopysis -Outpt follow up as directed for follow up chest CT -Follow CBC, culures #Acute kidney injury- secondary to right sided renal stone -CT of the abdomen/pelvis shows mild asymmetric prominence of the right renal pelvis and right ureter without discrete obstructive renal calculi seen in the setting of recently passed stone.? There is mild asymmetric right-sided perinephric fat stranding possibly reactive in the setting of recently passed stone. -Baseline CKD stage 3 -UA unremarkable -Creat 2.74, baseline 1.3 -ondansetron, pain management prn -Continue IVF -Follow BMP #Acute pharyngitis -Rapid strep pending -lozenges prn #Paroxysmal atrial fibrillation -rate controlled -Continue eliquis, coreg, amiodorone #HTN-reasonably controlled -continue coreg, amlodipine #HLD -continue statin #Thyroid nodule -incidentally found 1.5cm thyroid nodule -outpt follow up #Enlarged prostate -no LUTS -outpt follow up DVT prophylaxis- SCPs in setting of hemoptysis DNR/DNI Patient requires inpatient stay at least 2 midnights for management of suspected postobstructive pneumonia with acute hypoxemic respiratory failure requiring supplemental O2 on IV antibiotics as well as expert consultation and for correction of acute kidney injury following obstructed renal stone that has now passed Time Spent With Patient Time: Total time managing care of this patient today ____ minutes. Quality Stroke Does the patient have a stroke diagnosis?: No VTE Prior VTE?: No VTE Risk Level:: Medical - moderate - high VTE Device Contraindication: N/A - Device Ordered VTE Drug Contraindication: Treatment Not Indicated
[2023-03-25 22:05] VITALS: BP 119/59; PULSE 108; RESP 22; TEMP 36.8; O2SAT 95
[2023-03-25] MEDS: carvediloL 25 MG TABLET PO (22:57)
[2023-03-25] MEDS: Throat Lozenge, Medicated LOZENGE 1 LOZENGE MUCOUS MEM (23:01)
[2023-03-25 23:16] LABS: HBS Num1 0.79 mIU/mL (0-7.99); HBc Num1 0.13 S/CO (0.00-0.79); HBsAGNum1 0.31 S/CO (0.00-0.99); HIV AB/AG Nonreactive (Nonreactive); HIV Num 1 0.96 S/CO (0.00-0.99); Hepatitis B Core Antibody Nonreactive (Nonreactive); Hepatitis B Surface Antigen Negative (Negative); ~HepC Num1 0.15 S/CO (0.00-0.79); ~Hepatitis B Surface Antibody NONREACTIVE (Nonreactive)
[2023-03-25 23:26] LABS: IDNOW Serial# 6674DD1D; Strep A Nucleic Acid Negative (Negative)
[2023-03-25 23:26] LABS: Hepatitis C Ab Exposure Source NonReactive (Nonreactive)
--- NOTE | 2023-03-25 23:35 | PC.NURSE ---
Patient alert and oriented. Patient complains of throat pain. Lozenge administered as per dec and throat swab completed. 02 sat 90% at 2l nasal cannula oxygen flow rate increased to 4L/m with improvement of oxygen saturation noted. Will continue to follow plan of care.
[2023-03-26] MEDS: 0.9 % Sodium Chloride Flush 3 ML SYRINGE IVFLUSH ×4 (04:00→21:24)
[2023-03-26] MEDS: Piperacillin Sodium/Tazobactam 3.375 GM in 0.9 % Sodium Chloride 50 ML IV ×4 (04:00→21:21)
[2023-03-26 07:03] LABS: MANUAL DIFF FLAG NO
[2023-03-26 07:11] LABS: Basophils Percent Auto 0.2 % (0-2); Eosinophils Percent Auto 0.1 % (0-4); Hematocrit 45.7 % (42.0-52.0); Imm Gran Abs Auto 0.08 X10*3/uL (0.00-0.03); Lymphocytes Absolute Auto 0.7 X10*3/uL (1.2-4.9); Lymphocytes Percent Auto 8.9 % (20-40); Mean Corpuscular HGB Conc 32.8 g/dl (31.0-36.0); Mean Corpuscular Hemoglobin 27.1 pg (27.0-33.0); Mean Corpuscular Volume 82.5 fL (80.0-98.0); Mean Platelet Volume 11.2 fL (9.4-12.4); Monocytes Absolute Auto 0.8 X10*3/uL (0.1-1.2); Monocytes Percent Auto 9.9 % (2-11); Neutrophils Absolute Auto 6.5 x10*3/uL (2.0-8.3); Neutrophils Percent Auto 79.9 % (45-73); Platelet Count 179 X10*3/uL (160-400); Red Blood Count 5.54 X10*6/uL (4.60-5.80); Red Cell Distribution Width 14.9 % (11.0-16.0); White Blood Count 8.1 X10*3/uL (4.8-10.8)
[2023-03-26 07:23] LABS: Anion Gap 20 (12-20); Blood Urea Nitrogen 63 mg/dL (9-16); Calcium 8.5 mg/dL (8.4-10.2); Carbon Dioxide 20 mmol/L (22-29); Chloride 105 mmol/L (96-108); Creatinine Clr Calc Pharmacy 40.2; Estimated Glomerular Filt Rate 35; Glucose Random 87 mg/dL (60-115); Potassium 3.6 mmol/L (3.3-5.1); Sodium 141 mmol/L (135-145)
[2023-03-26 07:30] VITALS: BP 85/57; PULSE 94; RESP 19; TEMP 36.3; O2SAT 97
--- NOTE | 2023-03-26 07:40 | PHA.MEDREC ---
Pharmacy Consult ? Medication Reconciliation Pharmacy has completed the medication reconciliation.
[2023-03-26 08:12] VITALS: BP 96/60
[2023-03-26] MEDS: amLODIPine Besylate 10 MG TABLET PO (08:39)
[2023-03-26] MEDS: carvediloL 25 MG TABLET PO ×2 (08:39→21:21)
[2023-03-26] MEDS: Atorvastatin Calcium 10 MG TABLET PO (08:39)
[2023-03-26] MEDS: Amiodarone HCL 200 MG TABLET PO (08:41)
--- NOTE | 2023-03-26 08:48 | PC.NURSE ---
Pt arrived to unit and oriented to staff and room. he is satting in upper 90's on 4L n/c with no s/s resp distress. He pulled off his O2 several times and once desatted to 79% before staff could replace. Camera system set up for safety. Falls precautions instituted. occasional cough productive of loose occaisonal blood tinged sputum. pt denies other complaint at this time. he demonstrated very poor short term memory although he was oriented to self, month, hospital and situation. Airborne precautions initiated for r/o TB. pt and brother aware.
--- NOTE | 2023-03-26 08:55 | PM.CNPUL ---
History of Present Illness History of Present Illness Consult date: 03/26/23 Reason for consult: cough, hypoxemia and pneumonia Chief complaint: post obstructive pneumonia, hypoxia Narrative: [address] [address] Internal Med History&Physical Signed Patient: Gilberto Hassan MR#: [id number] : 1950 pulmonary consult I was us to see this 72 years old gentleman who has been admitted since yesterday, primarily for right flank pain and dark-colored urine, And along with that he also complained of having cough and some shortness of breath for the last many weeks, worse during the last few days. He was not aware of having any fever or chills. Sputum sometime dark-colored or blood-tinged. In he has lost some weight in the last few weeks. Patient denies having had any chronic pulmonary disease. He is a nonsmoker. He is known to have chronic kidney disease, depression, type 2 diabetes mellitus, atrial fibrillation, dilated cardiomyopathy and hyperlipidemia. 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 Review of Systems Review of Systems: This patient is mainly complaining of the respiratory symptoms as described in HPI, And also had back pain especially in the right flank. Has had generalized weakness, , decreased appetite and some weight loss. Yes all other systems are reviewed and are negative [facility] Social History Social History Alcohol intake: never Meds Allergies Allergy/AdvReac Type Severity Reaction Status Date / Time No Known Allergies Allergy Verified 03/25/23 12:02 Active Medications: Current Medications Acetaminophen (Acetaminophen 325 Mg Tablet) 650 mg PO Q6H PRN PRN Reason: Pain, Mild (Pain Scale 1-3) Amiodarone HCl (Amiodarone Hcl 200 Mg Tablet) 200 mg PO DAILY [facility] Last Admin: 03/26/23 08:41 Dose: 200 mg Amlodipine Besylate (Amlodipine Besylate 10 Mg Tablet) 10 mg PO DAILY [facility]; Protocol Last Admin: 03/26/23 08:39 Dose: 10 mg Atorvastatin Calcium (Atorvastatin Calcium 10 Mg Tablet) 10 mg PO DAILY [facility] Last Admin: 03/26/23 08:39 Dose: 10 mg Benzocaine (Throat Lozenge, Medicated Lozenge) 1 lozenge MUCOUS MEM Q2H PRN PRN Reason: Sore Throat Last Admin: 03/25/23 23:01 Dose: 1 lozenge Carvedilol (Carvedilol 25 Mg Tablet) 25 mg PO BID [facility]; Protocol Last Admin: 03/26/23 08:39 Dose: 25 mg Docusate Sodium (Docusate Sodium 100 Mg Capsule) 100 mg PO DAILY PRN PRN Reason: Constipation Guaifenesin (Guaifenesin 200 Mg/10 Ml 10 Ml Liquid) 10 ml PO Q4H PRN PRN Reason: Cough Piperacillin Sod/Tazobactam (Sod 3.375 gm/ Sodium Chloride) 50 mls @ 100 mls/hr IV Q6H [facility] Last Admin: 03/26/23 08:30 Dose: 100 mls/hr Ondansetron HCl (Ondansetron Hcl 4 Mg/2 Ml Vial) 4 mg IVPUSH Q8H PRN PRN Reason: Nausea and Vomiting Pharmacy Consult (Consult Rx Perform Med Rec) 1 each MISCELLANE ONCE PRN PRN Reason: Consult order Sodium Chloride (0.9 % Sodium Chloride Flush 3 Ml Syringe) 3 ml IVFLUSH QSHIFT [facility] Last Admin: 03/26/23 08:51 Dose: 3 ml Home Medications Medication Instructions Recorded Confirmed Last Taken Type amiodarone 200 mg tablet 200 mg PO DAILY 03/25/23 03/25/23 03/25/23 History amlodipine 10 mg tablet 10 mg PO DAILY 03/25/23 03/25/23 03/25/23 History apixaban 5 mg tablet (Eliquis) 5 mg PO BID 03/25/23 03/25/23 03/25/23 History carvedilol 25 mg tablet 25 mg PO BID 03/25/23 03/25/23 03/25/23 History simvastatin 20 mg tablet 20 mg PO DAILY 03/25/23 03/25/23 03/25/23 History Physical Exam Vital Signs: Vital Signs: Last Vital Signs Temp 97.3 F 03/26/23 07:30 Pulse 94 03/26/23 07:30 Resp 19 03/26/23 07:30 BP 96/60 03/26/23 08:12 Pulse Ox 97 03/26/23 07:30 O2 Del Method Nasal Cannula 03/26/23 07:30 O2 Flow Rate 4 03/26/23 07:30 BMI result Body Mass Index 28.5 Const: General: comfortable, no acute distress, alert and awake Orientation/consciousness: patient oriented x3 HEENT: Head: Yes normal to inspection General nose exam: No nasal polyps present and No nasal discharge present Face and sinus: Yes sinuses nontender Mouth: oropharynx normal Throat: Yes posterior oropharynx normal Eyes: General: appearance normal, both eyes and all related structures Neck: Neck: Yes normal visual inspection, Yes no lymphadenopathy, Yes trachea midline and Yes no JVD Thyroid: Thyroid normal Chest: Chest palpation & inspection: normal inspection of the chest, normal palpation of entire chest wall and no tenderness Resp: Other: Percussion note is resonant. Breath sounds or slightly decreased over the right upper lobe. Inspiratory crepitations heard over the right upper lobe as well as over the right base, No wheezes. Cardio: Palpation: normal PMI Rate: regular rate Rhythm: regular rhythm Heart sounds: no gallops and no murmurs GI: Palpation (GI): Soft to palpation, nontender, No hepatosplenomegaly present and no masses Auscultation: normal bowel sounds Back/Spine/Pelvis: Thoracic/Lumbar Spine: thoracic and lumbar spine normal to inspection Skin: General skin exam: no rashes or lesions noted Neuro: General: patient oriented x3 and no focal motor deficits Extrem: General: Yes normal to inspection, Yes no clubbing, cyanosis or edema and Yes no calf tenderness Psych: Appearance: grossly normal Speech and movement: Normal speech and movement present (Speech is somewhat slow) Results Laboratory Findings 03/26/23 06:18 03/26/23 06:18 ABG, PT/INR, D-dimer: PT/INR, D-dimer PT 22.2 SEC (10.0-13.1) H 03/25/23 12:47 INR 1.9 (0.9-1.1) H 03/25/23 12:47 Abnormal lab findings: Abnormal Labs 03/25/23 03/25/23 03/25/23 12:47 12:47 12:47 WBC 11.8 H Immature Gran % (Auto) 0.5 H Neut % (Auto) 85.1 H Lymph % (Auto) 6.8 L Lymph # (Auto) 0.8 L Abs Immat Gran (auto) 0.06 H Absolute Neuts (auto) 10.1 H PT 22.2 H INR 1.9 H Carbon Dioxide BUN 78 H Creatinine 2.74 H Total Bilirubin 2.1 H Direct Bilirubin 0.9 H AST 78 H ALT 50 H Albumin 3.4 L Urine Protein Urine RBC 03/25/23 03/26/23 03/26/23 16:08 06:18 06:18 WBC Immature Gran % (Auto) 1.0 H Neut % (Auto) 79.9 H Lymph % (Auto) 8.9 L Lymph # (Auto) 0.7 L Abs Immat Gran (auto) 0.08 H Absolute Neuts (auto) PT INR Carbon Dioxide 20 L BUN 63 H Creatinine 1.90 H Total Bilirubin Direct Bilirubin AST ALT Albumin Urine Protein 30 (1+) H Urine RBC 3-5 H Diagnostic Findings Chest x-ray: report reviewed and image reviewed CT scan - chest: report reviewed and image reviewed Assessment and Plan (1) Pneumonia: Status: Acute (2) Hemoptysis: Status: Acute Plan Main pulmonary problem at this time is presence of pneumonia in the right upper lobe, It seems that he may have underlying says scarring in the right upper lobe from before. The etiology of pneumonia may be routine community-acquired pneumonia, Underlying chronic tuberculosis and malignancy cannot be ruled out. RECC. Agree with the current treatment with antibiotic coverage, oxygen supplementation. Make sure the sputum has been sent for routine Gram stain/culture and sensitivity, as well as for AFB smear and culture. I would also submit sputum for cytology. O2 supplementation to keep O2 sat above. 92% Once this acute problem is treated, he would need short-term follow-up with a CT scan of the chest. If there is not much clinical and radiologic improvement , in the next few days then he should have bronchoscopic examination. Thank you very much for asthma to see this patient. Time Spent With Patient Time: Total time managing care of this patient today ____ minutes. Procedures Date of Service Date of Service: 03/26/23
[2023-03-26 09:18] VITALS: BMI 28.5
--- NOTE | 2023-03-26 10:31 | P.PNIM_ITS ---
Subjective Subjective Date of Service: 03/27/23 Interval History: f/u on pna, in tb isolation, no hypoxia, overall feels better Physical Exam Vital Signs: Vital Signs: Last Vital Signs Temp 97.3 F 03/26/23 07:30 Pulse 94 03/26/23 07:30 Resp 19 03/26/23 07:30 BP 96/60 03/26/23 08:12 Pulse Ox 97 03/26/23 07:30 O2 Del Method Nasal Cannula 03/26/23 07:30 O2 Flow Rate 4 03/26/23 07:30 BMI result Body Mass Index 28.5 Const: Other: General: AO X 3, no acute distress Resp: CTA bilateral CVS: S1,S2,RRR GI: +BS, NT, no distention Skin: No rash Neuro: motor grossly intact Psych: appropriate affect Objective Data Active Medications Acetaminophen (Acetaminophen 325 Mg Tablet) 650 mg PO Q6H PRN PRN Reason: Pain, Mild (Pain Scale 1-3) Amiodarone HCl (Amiodarone Hcl 200 Mg Tablet) 200 mg PO DAILY [facility] Last Admin: 03/26/23 08:41 Dose: 200 mg Documented By: JONEL Amlodipine Besylate (Amlodipine Besylate 10 Mg Tablet) 10 mg PO DAILY [facility]; Protocol Last Admin: 03/26/23 08:39 Dose: 10 mg Documented By: JONEL Atorvastatin Calcium (Atorvastatin Calcium 10 Mg Tablet) 10 mg PO DAILY [facility] Last Admin: 03/26/23 08:39 Dose: 10 mg Documented By: JONEL Benzocaine (Throat Lozenge, Medicated Lozenge) 1 lozenge MUCOUS MEM Q2H PRN PRN Reason: Sore Throat Last Admin: 03/25/23 23:01 Dose: 1 lozenge Documented By: BASILIO Carvedilol (Carvedilol 25 Mg Tablet) 25 mg PO BID [facility]; Protocol Last Admin: 03/26/23 08:39 Dose: 25 mg Documented By: JONEL Docusate Sodium (Docusate Sodium 100 Mg Capsule) 100 mg PO DAILY PRN PRN Reason: Constipation Guaifenesin (Guaifenesin 200 Mg/10 Ml 10 Ml Liquid) 10 ml PO Q4H PRN PRN Reason: Cough Piperacillin Sod/Tazobactam (Sod 3.375 gm/ Sodium Chloride) 50 mls @ 100 mls/hr IV Q6H [facility] Last Infusion: 03/26/23 09:28 Dose: 0 mls/hr Documented By: JONEL Ondansetron HCl (Ondansetron Hcl 4 Mg/2 Ml Vial) 4 mg IVPUSH Q8H PRN PRN Reason: Nausea and Vomiting Pharmacy Consult (Consult Rx Perform Med Rec) 1 each MISCELLANE ONCE PRN PRN Reason: Consult order Sodium Chloride (0.9 % Sodium Chloride Flush 3 Ml Syringe) 3 ml IVFLUSH QSHIFT [facility] Last Admin: 03/26/23 08:51 Dose: 3 ml Documented By: JONEL Labs 03/26/23 06:18 03/26/23 06:18 Labs: Laboratory Results - last 24 hr 03/25/23 03/25/23 03/25/23 12:47 12:47 12:47 MCV 82.0 MCH 27.3 MCHC 33.3 RDW 14.9 Plt Count 190 MPV 10.1 Immature Gran % (Auto) 0.5 H Neut % (Auto) 85.1 H Lymph % (Auto) 6.8 L Bertie % (Auto) 7.2 Eos % (Auto) 0.1 Baso % (Auto) 0.3 Lymph # (Auto) 0.8 L Bertie # (Auto) 0.9 Eos # (Auto) 0.0 Baso # (Auto) 0.0 Abs Immat Gran (auto) 0.06 H Absolute Neuts (auto) 10.1 H Absolute Nucleated RBC 0.000 Nucleated RBC % (auto) 0.0 PT INR Anion Gap 20 Estim Creat Clear Calc 27.9 Estimated GFR 23 Random Glucose 109 Lactic Acid Calcium 8.9 Magnesium 2.6 Total Bilirubin 2.1 H Direct Bilirubin 0.9 H AST 78 H ALT 50 H Alkaline Phosphatase 114 Total Creatine Kinase Troponin I High Sens 10.1 Total Protein 6.5 Albumin 3.4 L Lipase 36 Urine Color Urine Appearance Urine pH Ur Specific Beauty Urine Protein Urine Glucose (UA) Urine Ketones Urine Blood Urine Nitrite Ur Leukocyte Esterase Urine RBC Urine WBC Ur Squamous Epith Cells Urine Bacteria Hyaline Casts Granular Casts COVID-19 ([facility]) COVID-19 Clin Com Hep Bs Antigen Hep Bs Antibody Hep B Core Total Ab Hepatitis C Antibody HIV 1&2 Ab/P24 Ag 4thGn S. pyogenes GrpA MERYL 03/25/23 03/25/23 03/25/23 12:47 12:47 16:08 MCV MCH MCHC RDW Plt Count MPV Immature Gran % (Auto) Neut % (Auto) Lymph % (Auto) Bertie % (Auto) Eos % (Auto) Baso % (Auto) Lymph # (Auto) Bertie # (Auto) Eos # (Auto) Baso # (Auto) Abs Immat Gran (auto) Absolute Neuts (auto) Absolute Nucleated RBC Nucleated RBC % (auto) PT 22.2 H INR 1.9 H Anion Gap Estim Creat Clear Calc Estimated GFR Random Glucose Lactic Acid Calcium Magnesium Total Bilirubin Direct Bilirubin AST ALT Alkaline Phosphatase Total Creatine Kinase Troponin I High Sens Total Protein Albumin Lipase Urine Color Dark Yellow Urine Appearance Cloudy Urine pH 5.5 Ur Specific Beauty 1.020 Urine Protein 30 (1+) H Urine Glucose (UA) Negative Urine Ketones Trace Urine Blood Negative Urine Nitrite Negative Ur Leukocyte Esterase Negative Urine RBC 3-5 H Urine WBC 0-5 Ur Squamous Epith Cells 6-10 Urine Bacteria None Seen Hyaline Casts 11-20 Granular Casts Present COVID-19 ([facility]) Negative COVID-19 Clin Com See Note Hep Bs Antigen Hep Bs Antibody Hep B Core Total Ab Hepatitis C Antibody HIV 1&2 Ab/P24 Ag 4thGn S. pyogenes GrpA MERYL 03/25/23 03/25/23 03/25/23 18:10 21:41 21:41 MCV MCH MCHC RDW Plt Count MPV Immature Gran % (Auto) Neut % (Auto) Lymph % (Auto) Bertie % (Auto) Eos % (Auto) Baso % (Auto) Lymph # (Auto) Bertie # (Auto) Eos # (Auto) Baso # (Auto) Abs Immat Gran (auto) Absolute Neuts (auto) Absolute Nucleated RBC Nucleated RBC % (auto) PT INR Anion Gap Estim Creat Clear Calc Estimated GFR Random Glucose Lactic Acid 1.9 Calcium Magnesium Total Bilirubin Direct Bilirubin AST ALT Alkaline Phosphatase Total Creatine Kinase 138 Troponin I High Sens Total Protein Albumin Lipase Urine Color Urine Appearance Urine pH Ur Specific Beauty Urine Protein Urine Glucose (UA) Urine Ketones Urine Blood Urine Nitrite Ur Leukocyte Esterase Urine RBC Urine WBC Ur Squamous Epith Cells Urine Bacteria Hyaline Casts Granular Casts COVID-19 ([facility]) COVID-19 Clin Com Hep Bs Antigen Negative Hep Bs Antibody NONREACTIVE Hep B Core Total Ab Nonreactive Hepatitis C Antibody NonReactive HIV 1&2 Ab/P24 Ag 4thGn Nonreactive S. pyogenes GrpA MERYL 03/25/23 03/26/23 03/26/23 23:06 06:18 06:18 MCV 82.5 MCH 27.1 MCHC 32.8 RDW 14.9 Plt Count 179 MPV 11.2 Immature Gran % (Auto) 1.0 H Neut % (Auto) 79.9 H Lymph % (Auto) 8.9 L Bertie % (Auto) 9.9 Eos % (Auto) 0.1 Baso % (Auto) 0.2 Lymph # (Auto) 0.7 L Bertie # (Auto) 0.8 Eos # (Auto) 0.0 Baso # (Auto) 0.0 Abs Immat Gran (auto) 0.08 H Absolute Neuts (auto) 6.5 Absolute Nucleated RBC 0.000 Nucleated RBC % (auto) 0.0 PT INR Anion Gap 20 Estim Creat Clear Calc 40.2 Estimated GFR 35 Random Glucose 87 Lactic Acid Calcium 8.5 Magnesium Total Bilirubin Direct Bilirubin AST ALT Alkaline Phosphatase Total Creatine Kinase Troponin I High Sens Total Protein Albumin Lipase Urine Color Urine Appearance Urine pH Ur Specific Beauty Urine Protein Urine Glucose (UA) Urine Ketones Urine Blood Urine Nitrite Ur Leukocyte Esterase Urine RBC Urine WBC Ur Squamous Epith Cells Urine Bacteria Hyaline Casts Granular Casts COVID-19 ([facility]) COVID-19 Clin Com Hep Bs Antigen Hep Bs Antibody Hep B Core Total Ab Hepatitis C Antibody HIV 1&2 Ab/P24 Ag 4thGn S. pyogenes GrpA MERYL Negative Assessment and Plan (1) Hemoptysis: Status: Acute (2) Acute kidney injury superimposed on chronic kidney disease: Status: Acute (3) Pneumonia: Status: Acute Plan 72-year-old male with history of CKD stage 3, depression, diet-controlled type 2 diabetes, dilated cardiomyopathy, gout, paroxysmal atrial fibrillation anticoagulated with Eliquis, hypercholesterolemia, hypertension, and grief disorder as well as history of TBI with memory impairment admitted for suspected post-obstructive pneumonia with acute hypoxemic respiratory failure and ROSMERY. #Acute pneumonia- suspect post-obstructive with acute hypoxemic respiratory failure -Cough with hemoptysis, sob, unintentional weight loss ongoing several months concerning for malignancy. Chest CT shows a combination of consolidative and patchy and ground-glass opacities occupying the majority of the right upper lobe with associated volume loss possibly related to an atypical pneumonia with some component of atelectasis however underlying malignancy is not excluded. -Continue supplemental O2 to maintain oximetry >92% -IV zosyn (initiated 03/25) -Symptomatic management -No sepsis -Appreciate pulmonology recommend suputum culture, TB isloation -Outpt follow up as directed for follow up chest CT -Follow CBC, culures -Sputum AFB per pulmonary consult #Acute kidney injury- secondary to right sided renal stone -CT of the abdomen/pelvis shows mild asymmetric prominence of the right renal pelvis and right ureter without discrete obstructive renal calculi seen in the setting of recently passed stone.? There is mild asymmetric right-sided perinephric fat stranding possibly reactive in the setting of recently passed stone. -Baseline CKD stage 3 -UA unremarkable -Creat 2.74, baseline 1.3 -ondansetron, pain management prn -Continue IVF -Follow BMP -uro consult #Acute pharyngitis -Rapid strep negative -lozenges prn #Paroxysmal atrial fibrillation -rate controlled -Continue eliquis, coreg, amiodorone #HTN-reasonably controlled -continue coreg, amlodipine #HLD -continue statin #Thyroid nodule -incidentally found 1.5cm thyroid nodule -outpt follow up #Enlarged prostate -no LUTS -outpt follow up DVT prophylaxis- SCPs in setting of hemoptysis DNR/DNI Need for inpatient: management of suspected postobstructive pneumonia with acute hypoxemic respiratory failure requiring supplemental O2 on IV antibiotics as well as expert consultation and for correction of acute kidney injury following obstructed renal stone that has now passed Time Spent With Patient Time: Total time managing care of this patient today ____ minutes. Quality Stroke Does the patient have a stroke diagnosis?: No VTE Prior VTE?: No VTE Risk Level:: Medical - moderate - high VTE Device Contraindication: N/A - Device Ordered VTE Drug Contraindication: Treatment Not Indicated
--- NOTE | 2023-03-26 11:16 | MHC.CM.PN ---
IMM 03/26/23 DELIVERED TO BEDSIDE, EMR REVIEWED, PT ADMITTED W/HYPOXIA/POST UPSTRUCTIVE PNA ADN R/O TB, CM MET W/PT WHO REPORTS HE LIVES ALONE, IS INDEP W/ALL CARE, DENIES USE OF DME AND HOME SERVICES AND NELL FOR TRANSPORT. PT UNABLE TO CONFIRM PCP, DOES NOT RECALL NAME OR CLINIC, COVID VACC X1 AND PT WOULD LIKE TO COMPLETE A HCP PRIOR TO D/C. D/C PLAN: HOME NO SERVICES W/NELL FOR TRANSPORT
[2023-03-26 11:21] VITALS: BP 100/59; PULSE 85; RESP 14; TEMP 36.4; O2SAT 92
--- NOTE | 2023-03-26 12:20 | MHC.CM.PN ---
CM MET W/PT TO COMPLETE A HCP, PT NAMED HIS BROTHER KATTY ARMENTA [phone] HIS HCA W/NO ALTERNATE AT THIS TIME, COPY UPLOADED TO [facility] AND PLACED IN CHART.
[2023-03-26] MEDS: guaiFENesin 200 MG/10 ML 10 ML LIQUID PO (13:38)
[2023-03-26] MEDS: Throat Lozenge, Medicated LOZENGE 1 LOZENGE MUCOUS MEM (13:38)
[2023-03-26 15:51] VITALS: BP 103/63; PULSE 82; RESP 20; TEMP 36.4; O2SAT 93
[2023-03-26 19:53] VITALS: BP 127/89; PULSE 93; RESP 18; TEMP 37.1; O2SAT 97
[2023-03-26 23:56] VITALS: BP 112/68; PULSE 99; RESP 18; TEMP 36.6; O2SAT 92
[2023-03-27] MEDS: Piperacillin Sodium/Tazobactam 3.375 GM in 0.9 % Sodium Chloride 50 ML IV ×4 (02:48→20:18)
[2023-03-27 03:54] VITALS: BP 103/67; PULSE 98; RESP 20; TEMP 37.1; O2SAT 91
[2023-03-27 07:35] VITALS: BP 133/82; PULSE 94; RESP 20; TEMP 36.7; O2SAT 93
[2023-03-27] MEDS: carvediloL 25 MG TABLET PO ×2 (09:17→20:37)
[2023-03-27] MEDS: amLODIPine Besylate 10 MG TABLET PO (09:18)
[2023-03-27] MEDS: Atorvastatin Calcium 10 MG TABLET PO (09:18)
[2023-03-27] MEDS: Amiodarone HCL 200 MG TABLET PO (09:18)
[2023-03-27] MEDS: 0.9 % Sodium Chloride Flush 3 ML SYRINGE IVFLUSH ×2 (09:18→20:19)
--- NOTE | 2023-03-27 09:47 | HO.PM.IMPN ---
Subjective Subjective Date of Service: 03/27/23 Interval History: f/u on pna, in tb isolation, no hypoxia, overall feels better, no further complaint Physical Exam Vital Signs: Vital Signs: Last Vital Signs Temp 98.1 F 03/27/23 07:35 Pulse 94 03/27/23 07:35 Resp 20 03/27/23 07:35 BP 133/82 03/27/23 07:35 Pulse Ox 93 03/27/23 07:35 O2 Del Method Nasal Cannula 03/27/23 07:35 O2 Flow Rate 3 03/27/23 07:35 BMI result Body Mass Index 28.5 Const: Other: General: AO X 3, no acute distress Resp: CTA bilateral CVS: S1,S2,RRR GI: +BS, NT, no distention Skin: No rash Neuro: motor grossly intact Psych: appropriate affect Objective Data Active Medications Acetaminophen (Acetaminophen 325 Mg Tablet) 650 mg PO Q6H PRN PRN Reason: Pain, Mild (Pain Scale 1-3) Amiodarone HCl (Amiodarone Hcl 200 Mg Tablet) 200 mg PO DAILY [facility] Last Admin: 03/27/23 09:18 Dose: 200 mg Documented By: TANYA Amlodipine Besylate (Amlodipine Besylate 10 Mg Tablet) 10 mg PO DAILY [facility]; Protocol Last Admin: 03/27/23 09:18 Dose: 10 mg Documented By: TANYA Atorvastatin Calcium (Atorvastatin Calcium 10 Mg Tablet) 10 mg PO DAILY [facility] Last Admin: 03/27/23 09:18 Dose: 10 mg Documented By: TANYA Benzocaine (Throat Lozenge, Medicated Lozenge) 1 lozenge MUCOUS MEM Q2H PRN PRN Reason: Sore Throat Last Admin: 03/26/23 13:38 Dose: 1 lozenge Documented By: EDWINA Carvedilol (Carvedilol 25 Mg Tablet) 25 mg PO BID [facility]; Protocol Last Admin: 03/27/23 09:17 Dose: 25 mg Documented By: TANYA Docusate Sodium (Docusate Sodium 100 Mg Capsule) 100 mg PO DAILY PRN PRN Reason: Constipation Guaifenesin (Guaifenesin 200 Mg/10 Ml 10 Ml Liquid) 10 ml PO Q4H PRN PRN Reason: Cough Last Admin: 03/26/23 13:38 Dose: 10 ml Documented By: EDWINA Piperacillin Sod/Tazobactam (Sod 3.375 gm/ Sodium Chloride) 50 mls @ 100 mls/hr IV Q6H [facility] Last Admin: 03/27/23 09:17 Dose: 100 mls/hr Documented By: TANYA Ondansetron HCl (Ondansetron Hcl 4 Mg/2 Ml Vial) 4 mg IVPUSH Q8H PRN PRN Reason: Nausea and Vomiting Pharmacy Consult (Consult Rx Perform Med Rec) 1 each MISCELLANE ONCE PRN PRN Reason: Consult order Sodium Chloride (0.9 % Sodium Chloride Flush 3 Ml Syringe) 3 ml IVFLUSH QSHIFT [facility] Last Admin: 03/27/23 09:18 Dose: 3 ml Documented By: TANYA Labs 03/26/23 06:18 03/26/23 06:18 Microbiology Microbiology Results: Microbiology 03/26/23 14:38 Gram Stain - Final Sputum - Expectorated Sputum Culture - Final 03/25/23 18:42 Blood Culture - Preliminary Blood - Venous No growth after 24 hours. 03/25/23 18:10 Blood Culture - Preliminary Blood - Venous No growth after 24 hours. Assessment and Plan (1) Hemoptysis: Status: Acute (2) Acute kidney injury superimposed on chronic kidney disease: Status: Acute (3) Pneumonia: Status: Acute Plan 72-year-old male with history of CKD stage 3, depression, diet-controlled type 2 diabetes, dilated cardiomyopathy, gout, paroxysmal atrial fibrillation anticoagulated with Eliquis, hypercholesterolemia, hypertension, and grief disorder as well as history of TBI with memory impairment admitted for suspected post-obstructive pneumonia with acute hypoxemic respiratory failure and ROSMERY. #Acute pneumonia- suspect post-obstructive with acute hypoxemic respiratory failure -Cough with hemoptysis, sob, unintentional weight loss ongoing several months concerning for malignancy. Chest CT shows a combination of consolidative and patchy and ground-glass opacities occupying the majority of the right upper lobe with associated volume loss possibly related to an atypical pneumonia with some component of atelectasis however underlying malignancy is not excluded. -Continue supplemental O2 to maintain oximetry >92% -IV zosyn (initiated 03/25) -Symptomatic management -No sepsis -Appreciate pulmonology recommend suputum culture, TB isloation -Outpt follow up as directed for follow up chest CT -Follow CBC, culures -Sputum AFB per pulmonary consult -sputm culture #Acute kidney injury- secondary to right sided renal stone -CT of the abdomen/pelvis shows mild asymmetric prominence of the right renal pelvis and right ureter without discrete obstructive renal calculi seen in the setting of recently passed stone.? There is mild asymmetric right-sided perinephric fat stranding possibly reactive in the setting of recently passed stone. -Baseline CKD stage 3 -UA unremarkable -Creat 2.74, baseline 1.3 -ondansetron, pain management prn -Continue IVF -Follow BMP -uro consult #Acute pharyngitis -Rapid strep negative -lozenges prn #Paroxysmal atrial fibrillation -rate controlled -Continue eliquis, coreg, amiodorone #HTN-reasonably controlled -continue coreg, amlodipine #HLD -continue statin #Thyroid nodule -incidentally found 1.5cm thyroid nodule -outpt follow up #Enlarged prostate -no LUTS -outpt follow up DVT prophylaxis- SCPs in setting of hemoptysis DNR/DNI Need for inpatient: management of suspected postobstructive pneumonia with acute hypoxemic respiratory failure requiring supplemental O2 on IV antibiotics as well as expert consultation and for correction of acute kidney injury following obstructed renal stone that has now passed Time Spent With Patient Time: Total time managing care of this patient today ____ minutes. Quality Stroke Does the patient have a stroke diagnosis?: No VTE Prior VTE?: No VTE Risk Level:: Medical - moderate - high VTE Device Contraindication: N/A - Device Ordered VTE Drug Contraindication: Treatment Not Indicated
[2023-03-27 10:22] LABS: MRSA Nasal PCR NEGATIVE (Negative); SA Nasal PCR NEGATIVE (Negative)
[2023-03-27 11:27] VITALS: BP 100/51; PULSE 84; RESP 20; TEMP 37.6; O2SAT 93
--- NOTE | 2023-03-27 11:41 | MHC.CM.PN ---
EMR REVIEWED, PER HOSPITALIST PT WILL REMAIN INPT OVER W/E, ANTIC PT WILL DC HOME NO SERVICES ONCE MEDICALLY CLEARED, CM WILL CONT TO FOLLOW D/C NEEDS.
[2023-03-27 16:00] VITALS: BP 94/72; PULSE 91; RESP 15; TEMP 36.1; O2SAT 91
[2023-03-27 20:00] VITALS: BP 107/74; PULSE 108; RESP 15; TEMP 36; O2SAT 96
[2023-03-27] MEDS: Throat Lozenge, Medicated LOZENGE 1 LOZENGE MUCOUS MEM (20:38)
[2023-03-28] VITALS (7 sets, daily range): BP systolic 105–127; BP diastolic 64–89; PULSE 83–105; RESP 14–20; TEMP 36.1–37.6; O2SAT 94–97
[2023-03-28] MEDS: 0.9 % Sodium Chloride Flush 3 ML SYRINGE IVFLUSH ×2 (01:04→07:57)
[2023-03-28] MEDS: Piperacillin Sodium/Tazobactam 3.375 GM in 0.9 % Sodium Chloride 50 ML IV ×4 (01:05→21:17)
--- NOTE | 2023-03-28 05:31 | PC.NURSE ---
RECEIVED REPORT TO CARE FOR THIS PT AT 0400, RESTING WELL IN BED WITH NO S/SX RESP DISTRESS, NO PAIN. OXYGEN AT 3 LITERS N/C, OCCASIONAL PRECINCT COMMANDING OFFICER COUGH AND AIR BORNE PRECAUTIONS MAINTAINED PENDING LAB RESULTS, METER RECORD CLERK IN USE. BED ALARM IN USE FOR SAFETY, WILL CONTINUE TO MONITOR CLOSELY.
[2023-03-28] MEDS: amLODIPine Besylate 10 MG TABLET PO (07:56)
[2023-03-28] MEDS: carvediloL 25 MG TABLET PO ×2 (07:56→21:18)
[2023-03-28] MEDS: Amiodarone HCL 200 MG TABLET PO (07:56)
[2023-03-28] MEDS: Atorvastatin Calcium 10 MG TABLET PO (07:56)
--- NOTE | 2023-03-28 09:05 | HO.PM.IMPN ---
Subjective Subjective Date of Service: 03/28/23 Interval History: f/u on pna, in tb isolation, no new issues, feels better, minimal cough Physical Exam Vital Signs: Vital Signs: Last Vital Signs Temp 97.6 F 03/28/23 07:55 Pulse 100 03/28/23 07:55 Resp 20 03/28/23 07:55 BP 114/88 03/28/23 07:55 Pulse Ox 96 03/28/23 07:55 O2 Del Method Nasal Cannula 03/28/23 07:55 O2 Flow Rate 3 03/28/23 07:55 BMI result Body Mass Index 28.5 Const: Other: General: AO X 3, no acute distress Resp:rhonchi jose CVS: S1,S2,RRR GI: +BS, NT, no distention Skin: No rash Neuro: motor grossly intact Psych: appropriate affect Objective Data Active Medications Acetaminophen (Acetaminophen 325 Mg Tablet) 650 mg PO Q6H PRN PRN Reason: Pain, Mild (Pain Scale 1-3) Amiodarone HCl (Amiodarone Hcl 200 Mg Tablet) 200 mg PO DAILY [facility] Last Admin: 03/28/23 07:56 Dose: 200 mg Documented By: IVY Amlodipine Besylate (Amlodipine Besylate 10 Mg Tablet) 10 mg PO DAILY [facility]; Protocol Last Admin: 03/28/23 07:56 Dose: 10 mg Documented By: IVY Atorvastatin Calcium (Atorvastatin Calcium 10 Mg Tablet) 10 mg PO DAILY [facility] Last Admin: 03/28/23 07:56 Dose: 10 mg Documented By: IVY Benzocaine (Throat Lozenge, Medicated Lozenge) 1 lozenge MUCOUS MEM Q2H PRN PRN Reason: Sore Throat Last Admin: 03/27/23 20:38 Dose: 1 lozenge Documented By: TESFAYE Carvedilol (Carvedilol 25 Mg Tablet) 25 mg PO BID [facility]; Protocol Last Admin: 03/28/23 07:56 Dose: 25 mg Documented By: IVY Docusate Sodium (Docusate Sodium 100 Mg Capsule) 100 mg PO DAILY PRN PRN Reason: Constipation Guaifenesin (Guaifenesin 200 Mg/10 Ml 10 Ml Liquid) 10 ml PO Q4H PRN PRN Reason: Cough Last Admin: 03/26/23 13:38 Dose: 10 ml Documented By: EDWINA Piperacillin Sod/Tazobactam (Sod 3.375 gm/ Sodium Chloride) 50 mls @ 100 mls/hr IV Q6H [facility] Last Infusion: 03/28/23 08:36 Dose: 0 mls/hr Documented By: IVY Ondansetron HCl (Ondansetron Hcl 4 Mg/2 Ml Vial) 4 mg IVPUSH Q8H PRN PRN Reason: Nausea and Vomiting Pharmacy Consult (Consult Rx Perform Med Rec) 1 each MISCELLANE ONCE PRN PRN Reason: Consult order Sodium Chloride (0.9 % Sodium Chloride Flush 3 Ml Syringe) 3 ml IVFLUSH QSHIFT [facility] Last Admin: 03/28/23 07:57 Dose: 3 ml Documented By: IVY Labs 03/26/23 06:18 03/26/23 06:18 Labs: Laboratory Results - last 24 hr 03/26/23 14:38 Nasal Screen MRSA (PCR) NEGATIVE Nasal S. aureus Screen NEGATIVE Nasal MRSA/S.aureus Interp SEE NOTE Microbiology Microbiology Results: Microbiology 03/25/23 18:10 Blood Culture - Preliminary Blood - Venous No growth after 48 hours. 03/25/23 18:42 Blood Culture - Preliminary Blood - Venous 03/27/23 12:14 Gram Stain - Final Sputum - Expectorated Sputum Culture - Final 03/26/23 14:38 Gram Stain - Final Sputum - Expectorated Sputum Culture - Final Assessment and Plan (1) Hemoptysis: Status: Acute (2) Acute kidney injury superimposed on chronic kidney disease: Status: Acute (3) Pneumonia: Status: Acute Plan 72-year-old male with history of CKD stage 3, depression, diet-controlled type 2 diabetes, dilated cardiomyopathy, gout, paroxysmal atrial fibrillation anticoagulated with Eliquis, hypercholesterolemia, hypertension, and grief disorder as well as history of TBI with memory impairment admitted for suspected post-obstructive pneumonia with acute hypoxemic respiratory failure and ROSMERY. #Acute pneumonia- suspect post-obstructive with acute hypoxemic respiratory failure -Treat as CAP with Zosyn 03/25 -Sputum AFB and culture -O2 as needed #Acute kidney injury-? prerenal vs secondary to right sided renal stone, baseline CKD3, IVF, repeat BMP if Cr worse then uro consult #Acute pharyngitis -Rapid strep negative -lozenges prn #Paroxysmal atrial fibrillation -rate controlled -holding eliquis d/t hemoptysis, coreg, amiodorone #HTN-reasonably controlled -continue coreg, amlodipine #HLD -continue statin #Thyroid nodule -incidentally found 1.5cm thyroid nodule -outpt follow up #Enlarged prostate -no LUTS -outpt follow up DVT prophylaxis- SCPs in setting of hemoptysis DNR/DNI Need for inpatient: management of PNA with IV Abx, O2 and concern for TB which is being ruled out Time Spent With Patient Time: Total time managing care of this patient today ____ minutes. Quality Stroke Does the patient have a stroke diagnosis?: No VTE Prior VTE?: No VTE Risk Level:: Medical - moderate - high VTE Device Contraindication: N/A - Device Ordered VTE Drug Contraindication: Treatment Not Indicated
[2023-03-28 09:43] LABS: Anion Gap 10 (12-20); Blood Urea Nitrogen 30 mg/dL (9-16); Calcium 8.4 mg/dL (8.4-10.2); Carbon Dioxide 29 mmol/L (22-29); Chloride 107 mmol/L (96-108); Creatinine Clr Calc Pharmacy 52.7; Estimated Glomerular Filt Rate 48; Glucose Random 104 mg/dL (60-115); Potassium 3.5 mmol/L (3.3-5.1); Sodium 142 mmol/L (135-145)
[2023-03-28 15:59] LABS: TS Negative Control Passed; TS Panel A 2; TS Panel B 0; TS Positive Control Passed; TSpotTB Negative (Negative)
[2023-03-28] MEDS: Throat Lozenge, Medicated LOZENGE 1 LOZENGE MUCOUS MEM (21:17)
[2023-03-29] MEDS: Piperacillin Sodium/Tazobactam 3.375 GM in 0.9 % Sodium Chloride 50 ML IV ×4 (03:15→19:46)
[2023-03-29] MEDS: 0.9 % Sodium Chloride Flush 3 ML SYRINGE IVFLUSH ×4 (03:16→19:48)
[2023-03-29 03:35] VITALS: BP 137/85; PULSE 87; RESP 20; TEMP 36.6; O2SAT 96
--- NOTE | 2023-03-29 06:41 | PC.NURSE ---
Assumed care at 1900. Patient is alert and oriented x4. Can be forgetful per his own report. Patient has had negative TB T-spot test, and acid fast bacilli test still pending. Discussed with MD and with infection control, and patient needs 3 negative acid fast bacilli tests before his airborne precautions are to be cleared per infection control.
--- NOTE | 2023-03-29 07:47 | HO.PM.IMPN ---
Subjective Subjective Date of Service: 03/29/23 Interval History: f/u on pna, in tb isolation, no new issues, feels better, minimal cough Tspot negative for TB, afb pending Physical Exam Vital Signs: Vital Signs: Last Vital Signs Temp 97.9 F 03/29/23 03:35 Pulse 87 03/29/23 03:35 Resp 20 03/29/23 03:35 BP 137/85 03/29/23 03:35 Pulse Ox 96 03/29/23 03:35 O2 Del Method Nasal Cannula 03/29/23 03:35 O2 Flow Rate 3.5 03/29/23 03:35 BMI result Body Mass Index 28.5 Const: Other: General: AO X 3, no acute distress Resp:rhonchi jose CVS: S1,S2,RRR GI: +BS, NT, no distention Skin: No rash Neuro: motor grossly intact Psych: appropriate affect Objective Data Active Medications Acetaminophen (Acetaminophen 325 Mg Tablet) 650 mg PO Q6H PRN PRN Reason: Pain, Mild (Pain Scale 1-3) Amiodarone HCl (Amiodarone Hcl 200 Mg Tablet) 200 mg PO DAILY [facility] Last Admin: 03/28/23 07:56 Dose: 200 mg Documented By: IVY Amlodipine Besylate (Amlodipine Besylate 10 Mg Tablet) 10 mg PO DAILY [facility]; Protocol Last Admin: 03/28/23 07:56 Dose: 10 mg Documented By: IVY Atorvastatin Calcium (Atorvastatin Calcium 10 Mg Tablet) 10 mg PO DAILY [facility] Last Admin: 03/28/23 07:56 Dose: 10 mg Documented By: IVY Benzocaine (Throat Lozenge, Medicated Lozenge) 1 lozenge MUCOUS MEM Q2H PRN PRN Reason: Sore Throat Last Admin: 03/28/23 21:17 Dose: 1 lozenge Documented By: TESFAYE Carvedilol (Carvedilol 25 Mg Tablet) 25 mg PO BID [facility]; Protocol Last Admin: 03/28/23 21:18 Dose: 25 mg Documented By: TESFAYE Docusate Sodium (Docusate Sodium 100 Mg Capsule) 100 mg PO DAILY PRN PRN Reason: Constipation Guaifenesin (Guaifenesin 200 Mg/10 Ml 10 Ml Liquid) 10 ml PO Q4H PRN PRN Reason: Cough Last Admin: 03/26/23 13:38 Dose: 10 ml Documented By: EDWINA Piperacillin Sod/Tazobactam (Sod 3.375 gm/ Sodium Chloride) 50 mls @ 100 mls/hr IV Q6H [facility] Last Infusion: 03/29/23 05:29 Dose: 0 mls/hr Documented By: TESFAYE Ondansetron HCl (Ondansetron Hcl 4 Mg/2 Ml Vial) 4 mg IVPUSH Q8H PRN PRN Reason: Nausea and Vomiting Pharmacy Consult (Consult Rx Perform Med Rec) 1 each MISCELLANE ONCE PRN PRN Reason: Consult order Sodium Chloride (0.9 % Sodium Chloride Flush 3 Ml Syringe) 3 ml IVFLUSH QSHIFT [facility] Last Admin: 03/29/23 03:16 Dose: 3 ml Documented By: TESFAYE Labs 03/26/23 06:18 03/28/23 09:15 Labs: Laboratory Results - last 24 hr 03/26/23 03/28/23 06:18 09:15 Anion Gap 10 L Estim Creat Clear Calc 52.7 Estimated GFR 48 Random Glucose 104 Calcium 8.4 TB Test (T-Spot) Com Negative TB Test Nil Control Passed TB Test Panel A 2 TB Test Panel B 0 TB Test Positive Cntrl Passed Microbiology Microbiology Results: Microbiology 03/27/23 22:00 Gram Stain - Final Sputum - Expectorated Sputum Culture - Preliminary Culture in progress. 03/25/23 18:42 Blood Culture - Final Blood - Venous Corynebacterium species Assessment and Plan (1) Hemoptysis: Status: Acute (2) Acute kidney injury superimposed on chronic kidney disease: Status: Acute Plan 72-year-old male with history of CKD stage 3, depression, diet-controlled type 2 diabetes, dilated cardiomyopathy, gout, paroxysmal atrial fibrillation anticoagulated with Eliquis, hypercholesterolemia, hypertension, and grief disorder as well as history of TBI with memory impairment admitted for suspected post-obstructive pneumonia with acute hypoxemic respiratory failure and ROSMERY. #Acute pneumonia- suspect post-obstructive with acute hypoxemic respiratory failure -Treat as CAP with Zosyn 03/25 -Sputum AFB and culture pending -Tspot negative -O2 as needed -continue isolation until at least one AFB result available #Acute kidney injury-? prerenal vs secondary to right sided renal stone, baseline CKD3, IVF, improving #Acute pharyngitis -Rapid strep negative -lozenges prn #Paroxysmal atrial fibrillation -rate controlled -holding eliquis d/t hemoptysis, coreg, amiodorone #HTN-reasonably controlled -continue coreg, amlodipine #HLD -continue statin #Thyroid nodule -incidentally found 1.5cm thyroid nodule -outpt follow up #Enlarged prostate -no LUTS -outpt follow up DVT prophylaxis- SCPs in setting of hemoptysis, start heparin today DNR/DNI Need for inpatient: management of PNA with IV Abx, O2 and concern for TB which is being ruled out Time Spent With Patient Time: Total time managing care of this patient today ____ minutes. Quality Stroke Does the patient have a stroke diagnosis?: No VTE Prior VTE?: No VTE Risk Level:: Medical - moderate - high VTE Device Contraindication: N/A - Device Ordered VTE Drug Contraindication: Treatment Not Indicated
[2023-03-29] MEDS: Atorvastatin Calcium 10 MG TABLET PO (09:10)
[2023-03-29] MEDS: Throat Lozenge, Medicated LOZENGE 1 LOZENGE MUCOUS MEM (09:10)
[2023-03-29] MEDS: Amiodarone HCL 200 MG TABLET PO (09:10)
[2023-03-29] MEDS: amLODIPine Besylate 10 MG TABLET PO (09:10)
[2023-03-29] MEDS: carvediloL 25 MG TABLET PO ×2 (09:10→19:46)
[2023-03-29] MEDS: guaiFENesin 200 MG/10 ML 10 ML LIQUID PO ×2 (09:10→19:46)
[2023-03-29] MEDS: Heparin Sodium,Porcine 5,000 UNIT/ML VIAL 5000 UNIT SUBCUT ×2 (09:24→19:45)
[2023-03-29 10:13] VITALS: BP 136/82; PULSE 93; RESP 20; TEMP 36.4; O2SAT 96
[2023-03-29 11:46] VITALS: BP 103/74; PULSE 84; RESP 20; TEMP 36.7; O2SAT 94
[2023-03-29 15:10] VITALS: BP 100/60; PULSE 73; RESP 18; TEMP 36.7; O2SAT 97
[2023-03-29 19:51] VITALS: BP 139/94; PULSE 86; RESP 18; TEMP 37; O2SAT 97
[2023-03-29 23:36] VITALS: BP 149/72; PULSE 82; RESP 18; TEMP 36.6; O2SAT 97
[2023-03-30] MEDS: Piperacillin Sodium/Tazobactam 3.375 GM in 0.9 % Sodium Chloride 50 ML IV ×4 (02:35→20:07)
[2023-03-30 03:53] VITALS: BP 121/73; PULSE 86; RESP 20; TEMP 36.6; O2SAT 93
[2023-03-30 07:41] LABS: Glucose, Whole Blood 78 mg/dL (60-115)
[2023-03-30 07:47] LABS: Anion Gap 14 (12-20); Blood Urea Nitrogen 18 mg/dL (9-16); Calcium 8.6 mg/dL (8.4-10.2); Carbon Dioxide 28 mmol/L (22-29); Chloride 106 mmol/L (96-108); Creatinine Clr Calc Pharmacy 59.2; Estimated Glomerular Filt Rate 55; Glucose Random 87 mg/dL (60-115); Potassium 3.7 mmol/L (3.3-5.1); Sodium 144 mmol/L (135-145)
[2023-03-30 08:00] VITALS: BP 116/77; PULSE 90; RESP 18; TEMP 36.8; O2SAT 94
[2023-03-30] MEDS: Heparin Sodium,Porcine 5,000 UNIT/ML VIAL 5000 UNIT SUBCUT ×2 (09:10→20:06)
[2023-03-30] MEDS: Amiodarone HCL 200 MG TABLET PO (09:11)
[2023-03-30] MEDS: carvediloL 25 MG TABLET PO ×2 (09:11→20:06)
[2023-03-30] MEDS: 0.9 % Sodium Chloride Flush 3 ML SYRINGE IVFLUSH ×2 (09:11→19:50)
[2023-03-30] MEDS: Atorvastatin Calcium 10 MG TABLET PO (09:11)
[2023-03-30] MEDS: amLODIPine Besylate 10 MG TABLET PO (09:11)
--- NOTE | 2023-03-30 10:03 | HO.PM.IMPN ---
Subjective Subjective Date of Service: 03/30/23 Interval History: f/u on pna, in tb isolation, no new issues, feels overll better, minimal cough Tspot negative for TB, afb still pending Physical Exam Vital Signs: Vital Signs: Last Vital Signs Temp 98.3 F 03/30/23 08:00 Pulse 90 03/30/23 08:00 Resp 18 03/30/23 08:00 BP 116/77 03/30/23 08:00 Pulse Ox 94 03/30/23 08:00 O2 Del Method Nasal Cannula 03/30/23 08:00 O2 Flow Rate 2 03/30/23 08:00 BMI result Body Mass Index 28.5 Const: Other: General: AO X 3, no acute distress Resp:rhonchi jose CVS: S1,S2,RRR GI: +BS, NT, no distention Skin: No rash Neuro: motor grossly intact Psych: appropriate affect Objective Data Active Medications Acetaminophen (Acetaminophen 325 Mg Tablet) 650 mg PO Q6H PRN PRN Reason: Pain, Mild (Pain Scale 1-3) Amiodarone HCl (Amiodarone Hcl 200 Mg Tablet) 200 mg PO DAILY [facility] Last Admin: 03/30/23 09:11 Dose: 200 mg Documented By: IVY Amlodipine Besylate (Amlodipine Besylate 10 Mg Tablet) 10 mg PO DAILY [facility]; Protocol Last Admin: 03/30/23 09:11 Dose: 10 mg Documented By: IVY Atorvastatin Calcium (Atorvastatin Calcium 10 Mg Tablet) 10 mg PO DAILY [facility] Last Admin: 03/30/23 09:11 Dose: 10 mg Documented By: IVY Benzocaine (Throat Lozenge, Medicated Lozenge) 1 lozenge MUCOUS MEM Q2H PRN PRN Reason: Sore Throat Last Admin: 03/29/23 09:10 Dose: 1 lozenge Documented By: EDWINA Carvedilol (Carvedilol 25 Mg Tablet) 25 mg PO BID [facility]; Protocol Last Admin: 03/30/23 09:11 Dose: 25 mg Documented By: IVY Docusate Sodium (Docusate Sodium 100 Mg Capsule) 100 mg PO DAILY PRN PRN Reason: Constipation Guaifenesin (Guaifenesin 200 Mg/10 Ml 10 Ml Liquid) 10 ml PO Q4H PRN PRN Reason: Cough Last Admin: 03/29/23 19:46 Dose: 10 ml Documented By: BEAU Heparin Sodium (Porcine) (Heparin Sodium,Porcine 5,000 Unit/Ml Vial) 5,000 unit SUBCUT Q12H [facility] Last Admin: 03/30/23 09:10 Dose: 5,000 unit Documented By: IVY Piperacillin Sod/Tazobactam (Sod 3.375 gm/ Sodium Chloride) 50 mls @ 100 mls/hr IV Q6H [facility] Last Admin: 03/30/23 09:10 Dose: 100 mls/hr Documented By: IVY Ondansetron HCl (Ondansetron Hcl 4 Mg/2 Ml Vial) 4 mg IVPUSH Q8H PRN PRN Reason: Nausea and Vomiting Pharmacy Consult (Consult Rx Perform Med Rec) 1 each MISCELLANE ONCE PRN PRN Reason: Consult order Sodium Chloride (0.9 % Sodium Chloride Flush 3 Ml Syringe) 3 ml IVFLUSH QSHIFT [facility] Last Admin: 03/30/23 09:11 Dose: 3 ml Documented By: IVY Labs 03/26/23 06:18 03/30/23 06:25 Labs: Laboratory Results - last 24 hr 03/30/23 03/30/23 06:25 07:37 Anion Gap 14 Estim Creat Clear Calc 59.2 Estimated GFR 55 POC Glucose 78 Random Glucose 87 Calcium 8.6 Microbiology Microbiology Results: Microbiology 03/27/23 22:00 Gram Stain - Final Sputum - Expectorated Sputum Culture - Preliminary Culture in progress. Assessment and Plan (1) Hemoptysis: Status: Acute (2) Acute kidney injury superimposed on chronic kidney disease: Status: Acute (3) Pneumonia: Status: Acute Plan 72-year-old male with history of CKD stage 3, depression, diet-controlled type 2 diabetes, dilated cardiomyopathy, gout, paroxysmal atrial fibrillation anticoagulated with Eliquis, hypercholesterolemia, hypertension, and grief disorder as well as history of TBI with memory impairment admitted for suspected post-obstructive pneumonia with acute hypoxemic respiratory failure and ROSMERY. #Acute pneumonia- suspect post-obstructive with acute hypoxemic respiratory failure, acute resp failure has resolved -Treat as CAP with Zosyn 03/25--change to PO today -Sputum AFB and culture pending -Tspot negative -O2 as needed -will dc isolation of ok with pulmonology #Acute kidney injury-? prerenal vs secondary to right sided renal stone, baseline CKD3, IVF, ROSMERY resolved #Acute pharyngitis -Rapid strep negative -lozenges prn #Paroxysmal atrial fibrillation -rate controlled -holding eliquis d/t hemoptysis, coreg, amiodorone #HTN-reasonably controlled -continue coreg, amlodipine #HLD -continue statin #Thyroid nodule -incidentally found 1.5cm thyroid nodule -outpt follow up #Enlarged prostate -no LUTS -outpt follow up DVT prophylaxis- SCPs in setting of hemoptysis, start heparin today DNR/DNI Need for inpatient: management of PNA with IV Abx, O2 and concern for TB which is being ruled out Dispo plan: change to PO Abx today, in dC home tomorrow or day after if no new issues Time Spent With Patient Time: Total time managing care of this patient today ____ minutes. Quality Stroke Does the patient have a stroke diagnosis?: No VTE Prior VTE?: No VTE Risk Level:: Medical - moderate - high VTE Device Contraindication: N/A - Device Ordered VTE Drug Contraindication: Treatment Not Indicated
--- NOTE | 2023-03-30 10:10 | PM.PNPUL ---
Subjective Subjective Date of Service: 03/30/23 Interval history: The patient was seen and examined. Feels alot better, no further hemoptysis. WBC is normalized on the abx. AFB negative x 2 and Tspot negative. After reviewing the CT chest, appears to be more consistent with CAP. Oh evidence of cavities to suggest MTB either. BCx,+corybacterium which could lead to severe CAP. Objective Data Labs 03/26/23 06:18 03/30/23 06:25 Labs: Laboratory Results - last 24 hr 03/30/23 03/30/23 06:25 07:37 Sodium 144 Potassium 3.7 Chloride 106 Carbon Dioxide 28 Anion Gap 14 BUN 18 H Creatinine 1.29 Estim Creat Clear Calc 59.2 Estimated GFR 55 POC Glucose 78 Random Glucose 87 Calcium 8.6 Microbiology Microbiology Results: Microbiology 03/27/23 22:00 Sputum - Expectorated Gram Stain - Final 03/27/23 22:00 Sputum - Expectorated Sputum Culture - Preliminary Culture in progress. 03/25/23 18:42 Blood - Venous Blood Culture - Final Corynebacterium species 03/25/23 18:10 Blood - Venous Blood Culture - Preliminary No growth after 48 hours. 03/27/23 12:14 Sputum - Expectorated Gram Stain - Final 03/27/23 12:14 Sputum - Expectorated Sputum Culture - Final 03/26/23 14:38 Sputum - Expectorated Gram Stain - Final 03/26/23 14:38 Sputum - Expectorated Sputum Culture - Final Review of Systems Constitutional: Denies fever(s) Denies bleeding gums Cardiovascular: Denies chest pain Respiratory: Denies chest congestion, Denies cough, Denies hemoptysis and Denies wheezing Gastrointestinal: Reports no additional gastrointestinal complaints Musculoskeletal: Reports no additional musculoskeletal complaints Reports system reviewed and no additional complaints, except as documented Hematologic/Lymphatic: Denies easy bleeding, Denies easy bruising and Denies lymphadenopathy Allergic/Immunologic: Denies wheezing Physical Exam Vital Signs: Vital Signs: Last Vital Signs Temp 98.3 F 03/30/23 08:00 Pulse 90 03/30/23 08:00 Resp 18 03/30/23 08:00 BP 116/77 03/30/23 08:00 Pulse Ox 94 03/30/23 08:00 O2 Del Method Nasal Cannula 03/30/23 08:00 O2 Flow Rate 2 03/30/23 08:00 BMI result Body Mass Index 28.5 Const: General: comfortable HEENT: Head: Yes normocephalic Neck: Neck: Yes supple Chest: Chest palpation & inspection: normal inspection of the chest Resp: Effort & Inspection: normal respiratory effort Auscultation: clear to auscultation bilaterally Skin: General skin exam: no rashes or lesions noted Extrem: General: Yes no clubbing, cyanosis or edema Procedures Date of Service Date of Service: 03/30/23 Assessment and Plan Assessment and plan (1) Pneumonia: Status: Acute (2) Acute respiratory failure: Status: Acute (3) Hemoptysis: Status: Acute Plan Doing better, no further hemoptysis stop TB precautions, No suspicion for TB. CT chest not consistent, negative AFB x 2, neg Tspot and a alternative dx of CAP due to likely corybacterium Complete 14 days of antibiotics F/U with pulmonary in 2-3 weeks Time Spent With Patient Time: Total time managing care of this patient today ____ minutes. Progress Note: Quality Stroke Does the patient have a stroke diagnosis?: No
[2023-03-30 11:45] LABS: Glucose, Whole Blood 132 mg/dL (60-115)
[2023-03-30 12:00] VITALS: BP 133/89; PULSE 82; RESP 18; TEMP 36.4; O2SAT 97
[2023-03-30 15:57] VITALS: BP 106/69; PULSE 85; RESP 18; TEMP 36.8; O2SAT 96
[2023-03-30 19:38] VITALS: BP 112/76; PULSE 91; RESP 16; TEMP 36.6; O2SAT 95
[2023-03-30 23:20] VITALS: BP 101/63; PULSE 81; RESP 18; TEMP 36.6; O2SAT 98
[2023-03-31] MEDS: Piperacillin Sodium/Tazobactam 3.375 GM in 0.9 % Sodium Chloride 50 ML IV ×4 (01:54→22:00)
[2023-03-31 04:00] VITALS: BP 110/68; PULSE 94; RESP 18; TEMP 37.1; O2SAT 94
[2023-03-31 07:35] VITALS: BP 132/88; PULSE 88; RESP 20; TEMP 36.2; O2SAT 98
[2023-03-31 07:36] LABS: Glucose, Whole Blood 78 mg/dL (60-115)
[2023-03-31] MEDS: Heparin Sodium,Porcine 5,000 UNIT/ML VIAL 5000 UNIT SUBCUT ×2 (08:42→22:01)
[2023-03-31] MEDS: amLODIPine Besylate 10 MG TABLET PO (08:43)
[2023-03-31] MEDS: Atorvastatin Calcium 10 MG TABLET PO (08:43)
[2023-03-31] MEDS: Amiodarone HCL 200 MG TABLET PO (08:43)
[2023-03-31] MEDS: 0.9 % Sodium Chloride Flush 3 ML SYRINGE IVFLUSH ×3 (08:43→22:02)
[2023-03-31] MEDS: carvediloL 25 MG TABLET PO ×2 (08:43→22:02)
[2023-03-31 11:31] LABS: Glucose, Whole Blood 109 mg/dL (60-115)
[2023-03-31 11:56] VITALS: BP 98/63; PULSE 79; RESP 20; TEMP 36.6; O2SAT 98
[2023-03-31 15:09] VITALS: BP 118/73; PULSE 94; RESP 20; TEMP 36.8; O2SAT 96
--- NOTE | 2023-03-31 16:39 | HO.PM.IMPN ---
Subjective Subjective Date of Service: 04/01/23 Interval History: Pneumonia Review of Systems no new issues, feels overll better, minimal cough Tspot negative for TB, afb still? pending Physical Exam Vital Signs: Vital Signs: Last Vital Signs Temp 98.3 F 03/31/23 15:09 Pulse 94 03/31/23 15:09 Resp 20 03/31/23 15:09 BP 118/73 03/31/23 15:09 Pulse Ox 96 03/31/23 15:09 O2 Del Method Nasal Cannula 03/31/23 15:09 O2 Flow Rate 2 03/31/23 15:09 BMI result Body Mass Index 28.5 General: AO X 3, no acute distress Resp:rhonchi jose CVS: S1,S2,RRR GI: +BS, NT, no distention Skin: No rash Neuro:? motor grossly intact Psych: appropriate affect Objective Data Active Medications Acetaminophen (Acetaminophen 325 Mg Tablet) 650 mg PO Q6H PRN PRN Reason: Pain, Mild (Pain Scale 1-3) Amiodarone HCl (Amiodarone Hcl 200 Mg Tablet) 200 mg PO DAILY [facility] Last Admin: 03/31/23 08:43 Dose: 200 mg Documented By: MCKINLEY Amlodipine Besylate (Amlodipine Besylate 10 Mg Tablet) 10 mg PO DAILY [facility]; Protocol Last Admin: 03/31/23 08:43 Dose: 10 mg Documented By: MCKINLEY Atorvastatin Calcium (Atorvastatin Calcium 10 Mg Tablet) 10 mg PO DAILY [facility] Last Admin: 03/31/23 08:43 Dose: 10 mg Documented By: MCKINLEY Benzocaine (Throat Lozenge, Medicated Lozenge) 1 lozenge MUCOUS MEM Q2H PRN PRN Reason: Sore Throat Last Admin: 03/29/23 09:10 Dose: 1 lozenge Documented By: PHAKRISTIE Carvedilol (Carvedilol 25 Mg Tablet) 25 mg PO BID [facility]; Protocol Last Admin: 03/31/23 08:43 Dose: 25 mg Documented By: MCKINLEY Docusate Sodium (Docusate Sodium 100 Mg Capsule) 100 mg PO DAILY PRN PRN Reason: Constipation Guaifenesin (Guaifenesin 200 Mg/10 Ml 10 Ml Liquid) 10 ml PO Q4H PRN PRN Reason: Cough Last Admin: 03/29/23 19:46 Dose: 10 ml Documented By: BEAU Heparin Sodium (Porcine) (Heparin Sodium,Porcine 5,000 Unit/Ml Vial) 5,000 unit SUBCUT Q12H [facility] Last Admin: 03/31/23 08:42 Dose: 5,000 unit Documented By: MCKINLEY Piperacillin Sod/Tazobactam (Sod 3.375 gm/ Sodium Chloride) 50 mls @ 100 mls/hr IV Q6H [facility] Last Infusion: 03/31/23 15:35 Dose: 0 mls/hr Documented By: MCKINLEY Ondansetron HCl (Ondansetron Hcl 4 Mg/2 Ml Vial) 4 mg IVPUSH Q8H PRN PRN Reason: Nausea and Vomiting Pharmacy Consult (Consult Rx Perform Med Rec) 1 each MISCELLANE ONCE PRN PRN Reason: Consult order Sodium Chloride (0.9 % Sodium Chloride Flush 3 Ml Syringe) 3 ml IVFLUSH QSHIFT [facility] Last Admin: 03/31/23 14:46 Dose: 3 ml Documented By: MCKINLEY Labs 03/26/23 06:18 03/30/23 06:25 Labs: Laboratory Results - last 24 hr 03/31/23 03/31/23 07:28 11:12 POC Glucose 78 109 Microbiology Microbiology Results: Microbiology 03/27/23 22:00 Gram Stain - Final Sputum - Expectorated Sputum Culture - Preliminary Culture in progress. 03/25/23 18:10 Blood Culture - Final Blood - Venous No growth after 5 days. Assessment and Plan (1) Acute respiratory failure: Status: Acute (2) Pneumonia: Status: Acute Plan 72-year-old male with history of CKD stage 3, depression, diet-controlled type 2 diabetes, dilated cardiomyopathy, gout, paroxysmal atrial fibrillation anticoagulated with Eliquis, hypercholesterolemia, hypertension, and grief disorder as well as history memory impairment admitted for suspected post-obstructive pneumonia with acute hypoxemic respiratory failure and ROSMERY. Acute pneumonia- suspect post-obstructive with acute hypoxemic respiratory failure, acute resp failure has resolved -Treat as CAP with Zosyn 03/25--change to PO today -Sputum AFB and culture -negative -Tspot negative -O2 as needed seen by pulm-stop TB precautions, No suspicion for TB. CT chest not consistent, negative AFB x 2, neg Tspot and a alternative dx of CAP due to likely corybacterium Complete 14 days of antibiotics Acute kidney injury-? prerenal vs secondary to right sided renal stone, baseline CKD3, IVF,? ROSMERY resolved Acute pharyngitis -Rapid strep negative -lozenges prn Paroxysmal atrial fibrillation -rate controlled -holding eliquis d/t hemoptysis, coreg, amiodorone HTN-reasonably controlled -continue coreg, amlodipine HLD -continue statin Thyroid nodule -incidentally found 1.5cm thyroid nodule -outpt follow up Enlarged prostate -no LUTS -outpt follow up DVT prophylaxis- SCPs in setting of hemoptysis, start heparin today DNR/DNI Need for inpatient:? management of PNA with IV Abx, O2 Dispo plan: change to PO Abx today, in dC? home tomorrow or day after if no new issues Time Spent With Patient Time: Total time managing care of this patient today ____ minutes. Quality Stroke Does the patient have a stroke diagnosis?: No VTE Prior VTE?: No VTE Risk Level:: Medical - moderate - high VTE Device Contraindication: N/A - Device Ordered VTE Drug Contraindication: Treatment Not Indicated
[2023-03-31 19:12] VITALS: BP 115/77; PULSE 75; RESP 20; TEMP 36.4; O2SAT 96
[2023-03-31 23:54] VITALS: BP 112/68; PULSE 81; RESP 18; TEMP 36.6; O2SAT 95
[2023-04-01] VITALS (7 sets, daily range): BP systolic 89–148; BP diastolic 67–87; PULSE 69–93; RESP 18–20; TEMP 35.9–36.8; O2SAT 92–97
[2023-04-01] MEDS: Piperacillin Sodium/Tazobactam 3.375 GM in 0.9 % Sodium Chloride 50 ML IV ×2 (04:27→08:00)
[2023-04-01 07:53] LABS: Glucose, Whole Blood 88 mg/dL (60-115)
[2023-04-01] MEDS: Heparin Sodium,Porcine 5,000 UNIT/ML VIAL 5000 UNIT SUBCUT (08:00)
[2023-04-01] MEDS: 0.9 % Sodium Chloride Flush 3 ML SYRINGE IVFLUSH (08:01)
[2023-04-01] MEDS: Atorvastatin Calcium 10 MG TABLET PO (08:01)
[2023-04-01] MEDS: carvediloL 25 MG TABLET PO (08:01)
[2023-04-01] MEDS: Amiodarone HCL 200 MG TABLET PO (08:01)
[2023-04-01] MEDS: amLODIPine Besylate 10 MG TABLET PO (08:01)
--- NOTE | 2023-04-01 12:16 | P.DS_ITS ---
DS: Providers Provider Date of Service: 04/01/23 Date of admission: 03/25/23 21:04 Date of discharge: 04/01/23 Primary care physician: Unknown Physician Admitting clinician: Coco Queen Attending physician on admission: Coco Queen Consults: 03/25/23 21:19 Consult to Pulmonology Routine Consulting Provider: [facility] Pulmonology Services Reason for consultation: ?post-obstructive pneumonia, hemoptysis DS: Diagnosis Discharge Diagnosis (1) Pneumonia: Status: Acute (2) Acute respiratory failure: Status: Acute (3) Hemoptysis: Status: Acute DS: Summary Hospital Course Hospital Course: 72-year-old male with history of CKD stage 3, depression, diet-controlled type 2 diabetes, dilated cardiomyopathy, gout, paroxysmal atrial fibrillation anticoagulated with Eliquis, hypercholesterolemia, hypertension, and grief disorder as well as history memory impairment presents to the ED accompanied by his 2 cousins for evaluation of right-sided flank pain, cough, shortness of breath, and 10 lb unintentional weight loss.? He reports the right sided flank pain associated with dark urine this started several days ago.? He has had shortness of breath, productive cough with blood-tinged sputum ongoing for several months but worsened over the last few days and he has also been very fatigued.? He states the pain in the right flank is improved compared to yesterday.? He is also endorsing sore throat.? Denies any fevers but does endorse sweats and chills, no other abdominal pain, nausea, vomiting, dysuria, hematuria, increased urinary frequency urgency, lightheadedness, palpitations, or chest pain.? On arrival, patient is afebrile, intermittently tachycardic to 102, and hypoxic to 87% placed on 2 L supplemental O2.? There is a mild leukocytosis of 11.8, no anemia.? Creatinine 2.74 (baseline 1.3 from 12/01 at [facility]), BUN 78.? Electrolyte levels normal.? AST 78, ALT 50, total bilirubin 2.1, direct bilirubin 0.9.? Urinalysis unremarkable except for 1+ protein.? Negative leukocytes or blood.? CXR showing hypoexpanded right lung with increased density right lung apex ?question lesion versus underlying infiltrate follow-up CT recommended.? Chest CT shows a combination of consolidative and patchy and ground-glass opacities occupying the majority of the right upper lobe with associated volume loss possibly related to an atypical pneumonia with some component of atelectasis however underlying malignancy is not excluded.? There is also scattered sub 4 mm neck is calcified and noncalcified pulmonary nodules.? CT of the abdomen/pelvis shows mild asymmetric prominence of the right renal pelvis and right ureter without discrete obstructive renal calculi seen in the setting of recently passed stone.? There is mild asymmetric right-sided perinephric fat stranding possibly reactive in the setting of recently passed stone.? There is also enlarged prostate and instantly noted 1.5 cm right thyroid nodule.? In the ED, has been treated empirically for postobstructive pneumonia with IV Zosyn and is also receive 1 L IVF. Hospital course: Patient came to the hospital because shortness of breath, productive cough with blood-tinged sputum-found to have acute hypoxemic respiratory failure secondary to pneumonia, in addition also had ROSMERY-subsequently blood cultures sent, CT chest was done which showed combination of consolidative and patchy and ground- glass opacities occupying the majority of the right upper lobe with associated volume loss possibly related to an atypical pneumonia with some component of atelectasis however underlying malignancy is not excluded: Patient was started on IV antibiotics, sputum cultures were sent, the spot test was done, patient also seen by Pulmonary: AFB sputum cultures negative, chest CTs non consistent, negative T spot.No suspicion for TB. rosmery(thought to be prerenal vs renal stone less likely) improved with hydration. flank pain improved. Thyroid nodule-incidentally found 1.5cm thyroid nodule, outpt follow up. Enlarged prostate-no LUTS,outpt follow up Subsequently pulmonary suggested to for p.o. antibiotic upon discharge for pneumonia.home oxygen evaluation done -patient did not qualify . Patient need to follow up with pcp and pulmonary outpatiently plan: moniter renal function and electerolytes outpatiently. haemoptysis resolved ,started eliquis. complete course of p.o. antibiotics, repeat chest CT out patiently. Follow-up with Pulmonary outpatient Thyroid nodule-incidentally found 1.5cm thyroid nodule, outpt follow up. Enlarged prostate-no LUTS,outpt follow up- consider outpatient urology eval. Above management discussed with the patient and his brother in detail length, they both understand and in agreement with the above plan, time spent 50 minute. Time Spent with Patient Time attestation: Total time managing care of this patient today ____ minutes. Discharge coordination time: Greater than 30 minutes Quality: Safe Use of Opioids Does Pt have an Active Cancer Diagnosis on the Problem List?: No Quality: Stroke Does the patient have a stroke diagnosis?: No Physical Exam Vital Signs: Vital Signs: Last Vital Signs Temp 96.7 F L 04/01/23 12:00 Pulse 69 04/01/23 12:00 Resp 19 04/01/23 12:00 BP 89/67 L 04/01/23 12:00 Pulse Ox 96 04/01/23 12:00 O2 Del Method Nasal Cannula 04/01/23 12:00 O2 Flow Rate 2 04/01/23 12:00 BMI result Body Mass Index 28.5 General: AO X 3, no acute distress Resp:rhonchi jose CVS: S1,S2,RRR GI: +BS, NT, no distention Skin: No rash Neuro:? motor grossly intact Psych: appropriate affect DS: Data Data Completed and Pending Labs on day of discharge: Laboratory Results - last 24 hr 04/01/23 07:50 POC Glucose 88 Discharge Plan Discharge Anticipated Discharge Date/Time: 04/01/23 11:57 Patient Disposition: Home Health Service Discharge Diagnosis: Acute hypoxemic respiratory failure secondary to p neumonia, ROSMERY Referrals: [facility] [Outside] - 1 Week () [facility] [Outside] - 1 Week Jersey Santos MD [Physician] - 1 Week (follow up outpatient) Physician,Kaleb J [Primary Care Provider] - 1 Week Discharge Medications: New amoxicillin-pot clavulanate 875-125 mg tablet 1 tab PO BID Qty: 14 0RF doxycycline hyclate 100 mg capsule 100 mg PO BID Qty: 14 0RF Continued carvedilol 25 mg tablet 25 mg PO BID amiodarone 200 mg tablet 200 mg PO DAILY amlodipine 10 mg tablet 10 mg PO DAILY simvastatin 20 mg tablet 20 mg PO DAILY Eliquis 5 mg tablet 5 mg PO BID Discharge Orders: Discharge Order (Routine); Ordered 04/01/23 Ordered By: Coco Queen Diet: Advance to usual diet Activity on Discharge: As tolerated Stand Alone Forms: Patient Portal Discharge page Care Plan Goals: Patient came to the hospital because shortness of breath, productive cough with blood-tinged sputum-found to have acute hypoxemic respiratory failure secondary to pneumonia, in addition also had ROSMERY-subsequently blood cultures sent, CT chest was done which showed combination of consolidative and patchy and ground- glass opacities occupying the majority of the right upper lobe with associated volume loss possibly related to an atypical pneumonia with some component of atelectasis however underlying malignancy is not excluded: Patient was started on IV antibiotics, sputum cultures were sent, the spot test was done, patient also seen by Pulmonary: AFB sputum cultures negative, chest CTs non consistent, negative T spot.No suspicion for TB. due to atypical Ct finding above patient need to follow up with pulmonary for follow up and may need short term repeat Ct chest. rosmery improved with hydration . Thyroid nodule-incidentally found 1.5cm thyroid nodule,outpt follow up Enlarged prostate-no LUTS,outpt follow up Subsequently pulmonary suggested to for p.o. antibiotic upon discharge for pneumonia. Patient also need home oxygen evaluation. Patient need to follow up with pcp and pulmonary outpatiently Health Concerns: as above. Plan of Treatment: as above. Assessment: as above. Patient Instructions: Pneumonia (DC)
--- NOTE | 2023-04-01 12:31 | MHC.CM.PN ---
Addendum entered by Shara Simms RN 04/01/23 14:38: Pt did not qualify for home O2, pt has [employer] cross federal and Medicare A, per [facility] vna they can provide custodial for pt. referral also sent to [facility] for home eval for home health services. Addendum entered by Shara Simms RN 04/01/23 13:34: Per pt's nurse, hospitalist called and pt to have home O2 eval. Pt does report he still drives so not a candidate for vna services. Original Note: pt medically cleared for d/c home self-care, pt will call family/jose for transport.
--- NOTE | 2023-04-01 14:42 | W.MHC.F2F ---
Service Date Service Date: 04/01/23 Encounter Date of encounter: 04/01/23 Encounter: PNEUMONIA, ROSMERY Reasons for Services Signs and symptoms assessed: Monitor for shortness of breath or chest pain or cough or haemoptysis. Reason for alf: CV/CP assess and/or care, medication management, medication treatment and teach disease management MD Overseeing Care: Judy Barrios Homebound: Leaving the home is medically contraindicated at this time without the asist of a device and/or another person due th the listed conditions above and below. Reason homebound: weakness related to hospital stay Homebound supporting statement: Patient had multiple comorbidities including shortness of breath related to pneumonia, ROSMERY,paf, generalized weak need help go to appointments ,blood draws Certification: Based on the above findings, I certify that this patient is confined to the home and needs intermittent alf care, physical therapy and/or speech therapy, or continues to need occupational therapy. The patient is under my care, and I have initiated the establishment of the plan of care. The patient will be followed by a physician who will periodically review the plan of care. Time Spent With Patient Time: Total time managing care of this patient today ____ minutes.
== END 2023-04-01 15:48 | disposition home health service (06) | DRG 193 ==
LOC: HO.ED 20:08 → HO.EDOVER 21:13 → HO.IMC 03-26 00:12
PROVIDERS: Internal Medicine; Physician Assistant; Student in an Organized Health Care Education/Training Program; Admitting Provider Physician Assistant; Emergency Provider Emergency Medicine Emergency Medical Services; PCP Internal Medicine; Visit Provider Internal Medicine
DX: J15.9 Unspecified bacterial pneumonia (principal); J96.01 Acute respiratory failure with hypoxia; N17.9 Acute kidney failure, unspecified; R04.2 Hemoptysis; I42.0 Dilated cardiomyopathy; I12.9 Hypertensive chronic kidney disease with stage 1 through stage 4 chronic kidney disease, or unspecified chronic kidney disease; N40.0 Benign prostatic hyperplasia without lower urinary tract symptoms; I48.0 Paroxysmal atrial fibrillation; Z66 Do not resuscitate; N20.0 Calculus of kidney; E04.1 Nontoxic single thyroid nodule; E78.00 Pure hypercholesterolemia, unspecified; E11.22 Type 2 diabetes mellitus with diabetic chronic kidney disease; M10.9 Gout, unspecified; Z20.822 Contact with and (suspected) exposure to COVID-19; Z87.820 Personal history of traumatic brain injury; Z79.01 Long term (current) use of anticoagulants; Z79.899 Other long term (current) drug therapy
CPT/HCPCS: 36415; 71045; 71250; 74176; 80048; 80076; 81001; 82550; 82947; 83605; 83690; 83735; 84484; 85025; 85610; 86481; 86803; 87040; 87070; 87116; 87205; 87206; 87635; 87640; 87641; 87651; 93005; 97161; 99285; J1643; J2543

== ENCOUNTER → 2023-05-07 09:55 | Outpatient (BNVA) | payer BC, SELFPAY | PROVIDERS: Visit Provider Hospitalist ==

== ENCOUNTER 2023-07-17 14:02 | Outpatient (REF) | payer BC, SELFPAY ==
--- NOTE | ~2023-07-17 | XR_ITS ---
EXAMINATION: XR CHEST CLINICAL INFORMATION: Pneumonia, unspecified organism COMPARISON: Chest radiograph 03/25/2023, chest CT 03/25/2023 TECHNIQUE: 2 views of the chest were obtained. FINDINGS: Question residual opacity projected over the right first anterior rib versus normal vascularity. There is also a small patchy opacity projected over the left lung base. Elevation the right hemidiaphragm is seen. No pleural effusion. The cardiomediastinal silhouette is within normal limits. Calcification of the thoracic aorta is indicative of atherosclerotic disease. Mild degenerative changes involve the thoracic spine. XR/XR chest 2V IMPRESSION: 1. Question of residual opacity from previously seen right upper lobe pneumonia projected over the right first anterior rib versus normal vascularity. 2. Small patchy opacity projected over the left lung base consistent with atelectasis and/or pneumonia.
== END 2023-07-17 14:03 | disposition home or self-care (01) ==
LOC: HO.XRAY 14:02
PROVIDERS: PCP Internal Medicine; Visit Provider Hospitalist
DX: Z23 Encounter for immunization (principal); J18.9 Pneumonia, unspecified organism; R04.2 Hemoptysis; J31.0 Chronic rhinitis
CPT/HCPCS: 71046; 90471; 90677

== ENCOUNTER 2023-07-17 14:02 | Outpatient (AMB) | payer BC, SELFPAY ==
[2023-07-17 14:28] VITALS: BP 132/70; PULSE 65; O2SAT 98; BMI 28.1
--- NOTE | 2023-07-17 14:28 | MHC.OFFVIS ---
Intake Vital Signs 07/17/23 14:28 Height 5 ft 10 in Weight 196 lb BMI 28.1 BP 132/70 Blood Pressure Location Lt brachial Position Sitting Pulse 65 Pulse Source Pulse Oximeter Pulse Oximetry (%) 98 Oxygen Delivery Method Room Air Intake Visit Reasons: f/u ct scan Shade Cutter Required: No Allergies No Known Allergies Allergy (Verified 07/17/23 14:31) HPI HPI Comments History of Present Illness Details The patient is a 73 old gentleman who apparently started developing hemoptysis while being on Eliquis. He was admitted to the hospital during the hospitalization he was evaluated by Pulmonary. This is back in March 2023. CT scan of the chest demonstrated right upper lobe airspace disease consolidation. Blood cultures were positive for Corynebacterium. The patient was initially placed on TB precautions but subsequent taken out after having 2-AFBs stains and also a negative T spot. The patient was treated for infection and currently feeling better. Also having issues with his kidneys. Also seem to be improving. Denies any significant cough or shortness of breath. Denies any further hemoptysis. He is back on his Eliquis. Denies any night sweats or weight loss. Subsequent AFB cultures came back negative altogether. Patient does complaint of a postnasal drip and constant clearing of the throat. Worsen by the fires. Synq-po-dqluelje severity. He is not using any nasal therapy. Will go ahead and start him on a nasal spray. Will plan to repeat the CT scan to make sure there is resolution of the airspace disease within the next few weeks. 07/17/2023 the patient is here for a pulmonary follow-up visit. Overall the patient is feeling very well from a respiratory status. Denies any hemoptysis or any shortness of breath or cough. Denies any fevers or chills. Denies any chest discomfort. Although he feels like he is back to his baseline. He is tolerating the Eliquis. We again looked at his CT scan of the chest. He was supposed to follow-up with a repeat CT scan but for some reason he did not have it done. Therefore I will have him get a chest x-ray. Clinically he is doing well and his respiratory exam is completely normal so I do not foresee that he has any residual findings. Therefore, looked at the x-ray of the x-ray demonstrates any abnormalities will request a CT scan of the chest. Otherwise if the x-ray is within normal limits then which is follow-up with a repeat x-ray during his next visit next year. If the patient develops any worsening symptoms or recurrent hemoptysis prior to the next visit he knows to call the office quickly. [facility] Medical History (Updated 07/19/23 @ 23:57 by Jersey Santos MD) Chronic rhinitis Social History Household Members: None Do you presently have visiting nurse or other home services: No Alcohol intake: never Patient Tobacco Use Status: Never used Tobacco e-Cigarette/Vaping Use: Never Used Second Hand Smoke Exposure: No service: No Current occupational status: retired Review of Systems Const Denies fever(s) and Denies night sweats Eyes Denies blurry vision ENT Denies dysphagia, Reports nasal obstruction, Reports nasal trauma and Reports post nasal drip Card Denies chest pain Resp Reports cough, Denies hemoptysis and Denies wheezing GI Denies dysphagia Musc Reports myalgias Skin/Breast Denies rash Neuro Reports no additional complaints Vipin/Lymph Denies easy bleeding and Denies easy bruising Aller/Immun Denies wheezing Physical Exam Vital Signs: Last Vital Signs Pulse 65 07/17/23 14:28 BP 132/70 07/17/23 14:28 Pulse Ox 98 07/17/23 14:28 Oxygen Delivery Method Room Air 07/17/23 14:28 BMI result Body Mass Index 28.1 Const General: comfortable HEENT Head: Yes normocephalic Neck Neck: Yes supple Chest Chest palpation & inspection: normal inspection of the chest Resp Effort & Inspection: normal respiratory effort Auscultation: clear to auscultation bilaterally, no rales and no rhonchi Cardio Rate: regular rate Rhythm: regular rhythm Heart sounds: S1 normal heart sound present and S2 normal heart sound present GI Palpation (GI): Soft to palpation Skin General skin exam: no rashes or lesions noted Extrem General: Yes no clubbing, cyanosis or edema Immunizations pneumoc 20-francisco conj-dip cr(PF) 0.5 mL IM syringe Performing Provider: Jersey Santos MD Performing Location: [facility] Administered by: Shara Leon LPN on 07/17/23 14:52 Dose Route Admin Location Dispensed Lot Number Expiration Date [employer] 0.5 mL IM Left Deltoid 0.5 mL [id number] 09/01/24 0652-2412-74 [employer] VIS Given Date VIS Provided VIS Publication Date 07/17/23 Single Vaccine 23 Eligibility Eligibility Date Funding Source Not VF Eligible 07/17/23 Private Assessment & Plan Assessment & Plan (1) Pneumonia: Code(s): J18.9 - Pneumonia, unspecified organism Qualifiers: Pneumonia type: due to unspecified organism Laterality: unspecified laterality Lung location: unspecified part of lung Qualified Code(s): J18.9 - Pneumonia, unspecified organism (2) Hemoptysis: Comment: resolved, tolerating Eliquis Code(s): R04.2 - Hemoptysis (3) Chronic rhinitis: Code(s): J31.0 - Chronic rhinitis Plan CXR, CT chest if abnmormal pneumonia vaccine F/U 8-12 months Orders: Orders XR chest 2V 07/17/23 J18.9 - Pneumonia, unspecified organism Pneumococcal 20 Immunization 07/17/23 Z23 - Encounter for immunization Coding Level of Care Code Est Pt Level 4 (09600) Diagnoses Pneumonia due to infectious organism, unspecified laterality, unspecified part of lung J18.9 Pneumonia type: due to unspecified organism Laterality: unspecified laterality Lung location: unspecified part of lung Hemoptysis R04.2 Chronic rhinitis J31.0 Time Spent (min) 17
== END 2023-07-17 14:49 | disposition home or self-care (01) ==
PROVIDERS: Visit Provider Hospitalist
DX: J18.9 Pneumonia, unspecified organism (principal); R04.2 Hemoptysis; J31.0 Chronic rhinitis
CPT/HCPCS: 99214

== ENCOUNTER 2023-08-20 07:23 | Outpatient (REF) | payer BC, SELFPAY ==
--- NOTE | ~2023-08-20 | CT_ITS ---
EXAMINATION: CT CHEST WITHOUT CONTRAST CLINICAL INFORMATION: Pneumonia. COMPARISON: Chest x-ray 07/17/2023. CTA chest 03/25/2023. TECHNIQUE: Multidetector volumetric CT imaging of the chest was done. Axial MIP volume rendering provided. Sagittal and coronal reformatted images were obtained. This CT examination was performed using dose optimization techniques as appropriate, variously including the following: *Automated exposure control *Adjustment of mA and/or kV according to patient size (this includes techniques or standardized protocols for targeted exams where dose is matched to indication/reason for exam; i.e. extremities or head) *Use of iterative reconstruction technique DLP: 207 mGy-cm FINDINGS: LUNGS: No focal consolidation. Stable scattered micronodules and calcified granuloma for which no imaging follow-up is recommended as per Fleischner Society guidelines. No dominant nodule with suspicious morphology. Mild lower lobe bronchiectasis and airway wall thickening. The extensive mixed density consolidation in the right upper lobe seen on the previous study has completely resolved with perhaps some mild subsegmental atelectasis or scarring remaining posteriorly. MEDIASTINUM: No adenopathy. No pericardial effusion. Small hiatal hernia. CORONARY ARTERY CALCIFICATION: Mild three-vessel coronary calcium. PLEURA: There is no pleural effusion. No pleural mass or thickening. AXILLA: No adenopathy. UPPER ABDOMEN: Unremarkable. OSSEOUS STRUCTURES: Degenerative changes in the spine. CT/CT chest wo IV con IMPRESSION: Resolution of right upper lobe pneumonia. Fleischner guidelines were followed.
== END 2023-08-20 07:24 | disposition home or self-care (01) ==
LOC: HO.CT 07:23
PROVIDERS: PCP Internal Medicine; Visit Provider Hospitalist
DX: J18.9 Pneumonia, unspecified organism (principal); R93.89 Abnormal findings on diagnostic imaging of other specified body structures
CPT/HCPCS: 71250